=== PATIENT | male | born 1965 | race African-American/Black ===

== ENCOUNTER 2017-11-27 12:41 | Inpatient (IN) | payer OTHER ==
[2017-11-27 14:27] VITALS: BMI 29.8
--- NOTE | 2017-11-27 14:38 | HP ---
COWS - Scale Resting Pulse: 0= [place] 80 or Below Sweatin=Flushed/Facial Moisture Restless Observation: 3= Extraneous Movement Pupil Size: 2= Moderately Dilated Bone or Joint Aches: 2= Severe Diffuse Aches Runny Nose/ Eye Tearin= Runny Nose/Eyes GI Upset > 30mins: 3= Vomiting/Diarrhea Tremor Observation: 2= Slight Tremor Visible Yawning Observation: 2= >3x During Session Anxiety or Irritability: 2=Irritable/Anxious Goose Flesh Skin: 0=Smooth Skin COWS Score: 20 CIWA Score - CIWA Score Nausea/Vomitin Muscle Tremors: 3 Anxiety: 3 Agitation: 3 Paroxysmal Sweats: 1-Minimal Palms Moist Orientation: 0-Oriented Tacttile Disturbances: 2-Mild Itch/Numbness/Burn Auditory Disturbances: 2-Mild Harshness/Frighten Visual Disturbances: 1-Very Mild Sensitivity Headache: 2-Mild CIWA-Ar Total Score: 20 Admission ROS BHS - HPI Chief Complaint: I NEED HELP TO STOP USING HEROIN AND ALCOHOL ALSO COCAINE AND MARIJUANA,SEEKING DETOX,WITHDRAWAL SYMPTOM, LAST DETOX [facility] 06/06/16 TO 06/09/16 SYNCOPE ALCOHOL AND DRUG RELATED CONGENITAL BOW LEG USING WALKER ANXIETY,DEPRESSION,INSOMNIA LONGEST PERIOD OF SOBRIETY 6 YEARS Allergies/Adverse Reactions: Allergies Allergy/AdvReac Type Severity Reaction Status Date / Time No Known Allergies Allergy Verified 11/27/17 18:19 History of Present Illness: THIS 52 YEARS OLD MALE WITH HEROIN,ALCOHOL,COAINE AND MARIJUANA DEPENDENCE, SEEKING DETOX MENTIONED - Ebola screening Have you traveled outside of the country in the last 21 days: No (N) Have you had contact with anyone from an Ebola affected area: No Have you been sick,other than usual withdrawal symptoms: No Do you have a fever: No - Review of Systems Constitutional: Chills, Loss of Appetite, Malaise, Night Sweats, Changes in sleep, Weakness EENT: reports: Tearing, Nose Congestion Respiratory: reports: No Symptoms reported Cardiac: reports: No Symptoms Reported GI: reports: Diarrhea, Nausea, Vomiting, Abdominal cramping : reports: No Symptoms Reported Musculoskeletal: reports: Back Pain, Joint Pain, Muscle Pain, Joint Stiffness, Other (CONGENITAL BOW LEGS) Integumentary: reports: Dryness Neuro: reports: Headache, Tremors Endocrine: reports: No Symptoms Reported Hematology: reports: No Symptoms Reported Psychiatric: reports: No Sypmtoms Reported, Judgement Intact, Mood/Affect Appropiate, Orientated x3 (INSOMNIA), Anxious, Depressed, other Patient History - Patient Medical History Hx Anemia: No Hx Asthma: No Hx Chronic Obstructive Pulmonary Disease (COPD): No Hx Cancer: No Hx Cardiac Disorders: No Hx Congestive Heart Failure: No Hx Hypertension: No Hx Hypercholesterolemia: No Hx Pacemaker: No HX Cerebrovascular Accident: No Hx Seizures: No Hx Dementia: No Hx Diabetes: No Hx Gastrointestinal Disorders: No Hx Liver Disease: No Hx Genitourinary Disorders: No Hx Sexually Transmitted Disorders: No Hx Renal Disease (ESRD): No Hx Thyroid Disease: No Hx Human Immunodeficiency Virus (HIV): No (LAST 2015 NEGATIVE) Hx Hepatitis C: No Hx Depression: Yes (ANXIETY,INSOMNIA) Hx Suicide Attempt: No Hx Bipolar Disorder: No Hx Schizophrenia: No Other Medical History: NO SUICIDAL,NOHOMICIDAL,CONGENITL BOW LEG AMBULATE WITH WALKER - Patient Surgical History Past Surgical History: No Hx Neurologic Surgery: No Hx Cataract Extraction: No Hx Cardiac Surgery: No Hx Lung Surgery: No Hx Breast Surgery: No Hx Breast Biopsy: No Hx Abdominal Surgery: Yes (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 History Hx Alcohol Use: Yes Hx Substance Use: Yes Substance Use Type: Alcohol, Cocaine, Heroin, Marijuana Hx Substance Use Treatment: Yes (DOMENICA MADRID 08/31) - Substances Abused Heroin Route: Injection Frequency: Daily Amount used: 20 BAGS Age of first use: 13 Date of Last Use: 11/27/17 Alcohol Route: Oral Frequency: Daily Amount used: 1/5TH OF VODKA/2 OF 6 PACKS OF 12 OZS OF BEER Age of first use: 21 Date of Last Use: 11/26/17 Cocaine Route: Smoking Frequency: 3-6 times per week Amount used: 20$ Age of first use: 21 Date of Last Use: 11/26/17 Marijuana/Hashish Route: Smoking Frequency: 1-3 times last 30 days Amount used: 10$ Age of first use: 9 Date of Last Use: 11/22/17 Family Disease History - Family Disease History Family Disease History: CA: Mother ( CA OF LUNG), Other: Mother Admission Physical Exam [facility] - Vital Signs Vital Signs: Vital Signs - 24 hr 11/27/17 14:22 Temperature 98.1 F Pulse Rate 66 Respiratory 20 Rate Blood Pressure 135/76 - Physical General Appearance: Yes: Moderate Distress, Tremorous, Irritable, Sweating, Anxious HEENTM: Yes: Normal ENT Inspection, Normocephalic, MARY, Pharynx Normal Respiratory: Yes: Lungs Clear, Normal Breath Sounds, No Respiratory Distress Neck: Yes: Within Normal Limits, Supple, Trachea in good position Breast: Yes: Within Normal Limits Cardiology: Yes: Within Normal Limits, Regular Rhythm, Regular Rate, S1, S2 Abdominal: Yes: Within Normal Limits, Normal Bowel Sounds, Soft Genitourinary: Yes: Within Normal Limits Back: Yes: Muscle Spasm Musculoskeletal: Yes: Back pain, Joint Stiffness, Muscle Pain Extremities: Yes: Tremors, Other (CONGENITAL BOW LEGS WITH DEFORMITIY BOTH KNEES AMBULATE WITH WALKER) Neurological: Yes: anesthesia director II-XII NML intact, Fully Oriented, Alert, Motor Strength 5/5, Normal Mood/Affect Integumentary: Yes: Dry Lymphatic: Yes: Within Normal Limits - Diagnostic (1) Opioid dependence with withdrawal Current Visit: No Status: Acute (2) Alcohol dependence with uncomplicated withdrawal Current Visit: No Status: Acute (3) Cannabis dependence, uncomplicated Current Visit: No Status: Acute (4) Cocaine dependence, uncomplicated Current Visit: No Status: Acute (5) Nicotine dependence Current Visit: No Status: Acute Qualifiers: Nicotine product type: cigarettes Substance use status: uncomplicated Qualified Code(s): F17.210 - Nicotine dependence, cigarettes, uncomplicated (6) PPD positive, treated Current Visit: No Status: Acute (7) Congenital bow leg Current Visit: Yes Status: Acute (8) Walker as ambulation aid Current Visit: Yes Status: Acute Cleared for Admission [facility] - Detox or Rehab [facility] Level of Care: Medically Managed Detox Regimen/Protocol: Methadone/Librium BHS Breath Alcohol Content Breath Alcohol Content: 0 Urine Drug Screen - Results Drug Screen Negative: No Urine Drug Screen Results: THC-Marijuana, VASHTI-Cocaine, OPI-Opiates, AMP- Amphetamines, MET-Methamphetamine
[2017-11-27] MEDS ORDERED: hydrOXYzine PAMOATE 50 MG CAPSULE (FP) PO PRN (15:00)
[2017-11-27] MEDS ORDERED: MENTHOL/PHENOL 1 EACH UD MM PRN (15:00)
[2017-11-27] MEDS ORDERED: MAGNESIUM HYDROX 2400MG/30ML ORAL SUSPENSION 30 ML CUP PO PRN (15:00)
[2017-11-27] MEDS ORDERED: guaiFENesin/D-METHORPHAN HB 10 ML UNIT-DOSE CUPS PO PRN (15:00)
[2017-11-27] MEDS ORDERED: ACETAMINOPHEN 325 MG TABLET (FP) PO PRN (15:00)
[2017-11-27] MEDS ORDERED: LOPERAMIDE HCL 2 MG CAPSULE PO PRN (15:00)
[2017-11-27] MEDS ORDERED: IBUPROFEN 400 MG TABLET (FP) PO PRN (15:00)
[2017-11-27] MEDS ORDERED: MAG HYDROX/AL HYDROX/SIMETH 30 ML UNIT-DOSE CUP PO PRN (15:00)
[2017-11-27] MEDS ORDERED: MAGNESIUM CITRATE 300 ML BOTTLE PO PRN (15:00)
[2017-11-27] MEDS ORDERED: P-EPHED 60MG/TRIPROLIDI 2.5MG TABLET PO PRN (15:00)
[2017-11-27] MEDS ORDERED: chlordiazePOXIDE HCL 25 MG CAPSULE PO PRN (15:00)
[2017-11-27] MEDS ORDERED: CYCLOBENZAPRINE HCL 10 MG TABLET (FP) PO PRN (15:06)
[2017-11-27] MEDS ORDERED: METHADONE HCL 10 MG TABLET (FOR DETOX USE ONLY) PO ONE ×2 (15:22→23:00)
[2017-11-27] MEDS ORDERED: chlordiazePOXIDE HCL 25 MG CAPSULE PO ONE (15:22)
[2017-11-27] MEDS ORDERED: METHADONE HCL 10 MG TABLET (FOR DETOX USE ONLY) ONE (18:57)
[2017-11-27] MEDS: chlordiazePOXIDE HCL 25 MG CAPSULE PO SCH ×2 (19:25→22:55)
[2017-11-27] MEDS: THIAMINE HCL 100 MG TABLET (FP) PO SCH (22:55)
[2017-11-27] MEDS: cloNIDine HCL 0.1 MG TABLET PO SCH (22:55)
[2017-11-27 23:40] LABS: URINE APPEARANCE CLEAR; URINE BILIRUBIN NEGATIVE (NEGATIVE); URINE BLOOD NEGATIVE (NEGATIVE); URINE COLOR YELLOW; URINE GLUCOSE (UA) NEGATIVE (NEGATIVE); URINE KETONE NEGATIVE (NEGATIVE); URINE LEUK ESTERASE NEGATIVE (NEGATIVE); URINE NITRITE NEGATIVE (NEGATIVE); URINE PROTEIN NEGATIVE (NEGATIVE)
[2017-11-28] MEDS: chlordiazePOXIDE HCL 25 MG CAPSULE PO SCH ×4 (06:01→22:56)
[2017-11-28] MEDS ORDERED: METHADONE HCL 10 MG TABLET (FOR DETOX USE ONLY) PO SCH (10:00)
[2017-11-28 10:02] LABS: HEMOGLOBIN 11.4 GM/dL (11.7-16.9); MCH 22.9 pg (25.7-33.7); MCHC 31.7 g/dl (32.0-35.9); MEAN CELL VOLUME 72.3 fl (80-96); MEAN PLT VOLUME 8.4 fl (7.5-11.1); PLATELET COUNT 287 K/MM3 (134-434); RBC 4.99 M/mm3 (4.00-5.60); RDW 16.5 % (11.9-15.9); WHITE BLOOD COUNT 4.3 K/mm3 (4.0-10.0)
[2017-11-28 10:40] LABS: CHLORIDE 104 mmol/L (98-107); POTASSIUM 4.1 mmol/L (3.5-5.1); SODIUM 138 mmol/L (136-145)
[2017-11-28] MEDS: PRENATAL VITAMINS W/ FOLIC ACID TABLET (FP) PO SCH (10:55)
[2017-11-28] MEDS: cloNIDine HCL 0.1 MG TABLET PO SCH ×2 (10:55→22:56)
--- NOTE | 2017-11-28 11:01 | EKG ---
Test Reason : Blood Pressure : / mmHG Vent. Rate : 063 BPM Atrial Rate : 063 BPM P-R Int : 172 ms QRS Dur : 102 ms QT Int : 420 ms P-R-T Axes : -03 -54 019 degrees QTc Int : 429 ms NORMAL SINUS RHYTHM LEFT ANTERIOR FASCICULAR BLOCK ABNORMAL ECG NO PREVIOUS ECGS AVAILABLE Confirmed by JUNIOR DOYLE MD ([id number]) on 11/28/2017 11:01:02 AM Referred By: Confirmed By:JUNIOR DOYLE MD
[2017-11-28 11:03] LABS: ALBUMIN 3.2 g/dl (3.4-5.0); ALK PHOS 110 U/L (45-117); ANION GAP 7 (8-16); BILIRUBIN,TOTAL 0.4 mg/dL (0.2-1.0); BLOOD UREA NITROGEN 15 mg/dL (7-18); CALCIUM 8.4 mg/dL (8.5-10.1); CO2 27 mmol/L (21-32); CREATININE 1.1 mg/dL (0.7-1.3); GLUCOSE,RANDOM 143 mg/dL (74-106); SGOT/AST 27 U/L (15-37); SGPT/ALT 25 U/L (12-78); TOT PROT 6.8 g/dl (6.4-8.2)
--- NOTE | 2017-11-28 11:46 | PN ---
[facility] CIWA - CIWA Score Nausea/Vomitin-No Nausea/No Vomiting Muscle Tremors: 3 Anxiety: 4-Mod. Anxious/Guarded Agitation: 2 Paroxysmal Sweats: 3 Orientation: 0-Oriented Tacttile Disturbances: 2-Mild Itch/Numbness/Burn Auditory Disturbances: 2-Mild Harshness/Frighten Visual Disturbances: 2-Mild Sensitivity Headache: 0-None Present CIWA-Ar Total Score: 18 S COWS - Scale Resting Pulse: 0= [place] 80 or Below Sweatin= Chills/Flushing Restless Observation: 0= Sits Still Pupil Size: 0= Normal to Room Light Bone or Joint Aches: 2= Severe Diffuse Aches Runny Nose/ Eye Tearin= None GI Upset > 30mins: 0= None Tremor Observation of Outstretched Hands: 2= Slight Tremor Visible Yawning Observation: 2= >3x During Session Anxiety or Irritability: 2=Irritable/Anxious Goose Flesh Skin: 3=Piloerection COWS Score: 12 S Progress Note (SOAP) Subjective: Fatigue, Chills, Anxious, Interrupted Sleep, Tremors, Sweating. Objective: PT. A & O X 3. NO ACUTE DISTRESS. 11/28/17 11:43 Vital Signs Temperature 97.9 F 11/28/17 09:50 Pulse Rate 56 L 11/28/17 09:50 Respiratory Rate 18 11/28/17 09:50 Blood Pressure 116/65 11/28/17 09:50 O2 Sat by Pulse Oximetry (%) Laboratory Tests 11/27/17 11/28/17 11/28/17 20:21 05:50 05:50 WBC 4.3 D RBC 4.99 Hgb 11.4 L Hct 36.0 MCV 72.3 L MCH 22.9 L MCHC 31.7 L RDW 16.5 H Plt Count 287 MPV 8.4 Sodium 138 Potassium 4.1 Chloride 104 Carbon Dioxide 27 Anion Gap 7 L BUN 15 D Creatinine 1.1 Creat Clearance w eGFR > 60 Random Glucose 143 H D Calcium 8.4 L Total Bilirubin 0.4 AST 27 ALT 25 Alkaline Phosphatase 110 D Total Protein 6.8 Albumin 3.2 L Urine Color Yellow Urine Appearance Clear Urine pH 5.[address] [place] 1.023 Urine Protein Negative Urine Glucose (UA) Negative Urine Ketones Negative Urine Blood Negative Urine Nitrite Negative Urine Bilirubin Negative Urine Urobilinogen 2.0 Ur Leukocyte Esterase Negative RPR Titer 11/28/17 05:50 WBC RBC Hgb Hct MCV MCH MCHC RDW Plt Count MPV Sodium Potassium Chloride Carbon Dioxide Anion Gap BUN Creatinine Creat Clearance w eGFR Random Glucose Calcium Total Bilirubin AST ALT Alkaline Phosphatase Total Protein Albumin Urine Color Urine Appearance Urine pH Ur Specific [place] Urine Protein Urine Glucose (UA) Urine Ketones Urine Blood Urine Nitrite Urine Bilirubin Urine Urobilinogen Ur Leukocyte Esterase RPR Titer Nonreactive LABS NOTED. Assessment: 11/28/17 11:44 WITHDRAWAL SYMPTOMS. Plan: CONTINUE DETOX. BGM ACBK FOR ELEVATED ADMISSION RANDOM GLUCOSE LEVEL. INCREASE DAILY PO FLUID INTAKE.
--- NOTE | 2017-11-28 13:55 | CONSULT ---
[facility] Psychiatric Consult - Data Date of interview: 11/28/17 Admission source: [facility] Identifying data: Readmission to [facility] for this 52 y/o AA male seeking detox treatment on for alcohol,cocaine,heroin and marihuana dependence.Patient is single,a father of two,domiciled,disabled and reportedly deprived of financial assistance. Substance Abuse History: Confirmed by patient in this session.See details in current [facility] report.Smoking history: Current every day smoker. Have you smoked in the past 12 months: Yes. Aproximately how many cigarettes per day: 20. Cigars Per Day: 0. Hx Chewing Tobacco Use: No. Initiated information on smoking cessation: Yes. 'Breaking Loose' booklet given: 11/27/17. - Substance & Tx. History. Hx Alcohol Use: Yes. Hx Substance Use: Yes. Substance Use Type : Alcohol, Cocaine, Heroin, Marijuana. Hx Substance Use Treatment: Yes (DOMENICA MADRID 08/31). - Substances Abused. Heroin. Route: Injection. Frequency: Daily. Amount used: 20 BAGS. Age of first use: 13. Date of Last Use: . Alcohol. Route: Oral. Frequency: Daily. Amount used: 1/5TH OF VODKA/ 2 OF 6 PACKS OF 12 OZS OF BEER. Age of first use: 21. Date of Last Use: . Cocaine. Route: Smoking. Frequency: 3-6 times per week. Amount used: 20$. Age of first use: 21. Date of Last Use: 11/26/17. Marijuana/Hashish. Route: Smoking. Frequency: 1-3 times last 30 days. Amount used: 10$. Age of first use: 9. Date of Last Use: 11/22/17 Medical History: Arthritis,chronic joint pain,congenital bow leg and a history of plenectomy (age 8). Psychiatric History: Patient denies. Physical/Sexual Abuse/Trauma History: Patient denies. Additional Comment: Urine Drug Screen Results: THC-Marijuana, VASHTI-Cocaine, OPI- Opiates, AMP-Amphetamines, MET-Methamphetamine.Noted. Mental Status Exam - Mental Status Exam Alert and Oriented to: Time, Place, Person Cognitive Function: Grossly Intact Patient Appearance: Disheveled Mood: Angry, Hostile, Irritable Affect: Mood Congruent Patient Behavior: Fatigued, Uncooperative (argues that frequent staff visits prevent from getting enough rest) Speech Pattern: Clear Voice Loudness: Normal Thought Process: Intact, Goal Oriented Thought Disorder: Not Present Hallucinations: Denies Suicidal Ideation: Denies Homicidal Ideation: Denies Insight/Judgement: Poor Sleep: Poorly (wants seroquel), Difficulty falling asleep Appetite: Good Gait/Station: Normal (moves around with walker) Psychiatric Findings - Problem List ([place] 1, 2,3) (1) Opioid dependence with withdrawal Current Visit: Yes Status: Acute (2) Alcohol dependence with uncomplicated withdrawal Current Visit: Yes Status: Acute (3) Cannabis dependence, uncomplicated Current Visit: Yes Status: Acute (4) Cocaine dependence, uncomplicated Current Visit: Yes Status: Acute (5) Nicotine dependence Current Visit: Yes Status: Acute Qualifiers: Nicotine product type: cigarettes Substance use status: uncomplicated Qualified Code(s): F17.210 - Nicotine dependence, cigarettes, uncomplicated (6) Insomnia Current Visit: Yes Status: Acute - Initial Treatment Plan Initial Treatment Plan: Psychoeducation.Sleep hygiene.Detoxification in progress.Seroquel 50 mg po hs (patient's request).Side effects/benefits discussed wt patient.Mr Metz agrees to follow this careplan.Observation.
[2017-11-28] MEDS ORDERED: ONDANSETRON *ODT* 4 MG TABLET SL PRN (19:27)
--- NOTE | 2017-11-28 19:36 | PN ---
S Progress Note (SOAP) Subjective: " I want my methadone increase" Nausea and vomiting Objective: 11/28/17 19:31 Vital Signs Temperature 99.0 F 11/28/17 18:30 Pulse Rate 54 L 11/28/17 18:30 Respiratory Rate 18 11/28/17 18:30 Blood Pressure 127/67 11/28/17 18:30 O2 Sat by Pulse Oximetry (%) Patient was evaluated by the bedside Patient OAX3, no acute distress. Patient had recently vomited No chest pain, dizziness , or abdominal pain reported. Laboratory Last Values WBC 4.3 K/mm3 (4.0-10.0) D 11/28/17 05:50 RBC 4.99 M/mm3 (4.00-5.60) 11/28/17 05:50 Hgb 11.4 GM/dL (11.7-16.9) L 11/28/17 05:50 Hct 36.0 % (35.4-49) 11/28/17 05:50 MCV 72.3 fl (80-96) L 11/28/17 05:50 MCH 22.9 pg (25.7-33.7) L 11/28/17 05:50 MCHC 31.7 g/dl (32.0-35.9) L 11/28/17 05:50 RDW 16.5 % (11.9-15.9) H 11/28/17 05:50 Plt Count 287 K/MM3 (134-434) 11/28/17 05:50 MPV 8.4 fl (7.5-11.1) 11/28/17 05:50 Sodium 138 mmol/L (136-145) 11/28/17 05:50 Potassium 4.1 mmol/L (3.5-5.1) 11/28/17 05:50 Chloride 104 mmol/L (98-107) 11/28/17 05:50 Carbon Dioxide 27 mmol/L (21-32) 11/28/17 05:50 Anion Gap 7 (8-16) L 11/28/17 05:50 BUN 15 mg/dL (7-18) D 11/28/17 05:50 Creatinine 1.1 mg/dL (0.7-1.3) 11/28/17 05:50 Creat Clearance w eGFR > 60 (>60) 11/28/17 05:50 Random Glucose 143 mg/dL (74-106) H D 11/28/17 05:50 Calcium 8.4 mg/dL (8.5-10.1) L 11/28/17 05:50 Total Bilirubin 0.4 mg/dL (0.2-1.0) 11/28/17 05:50 AST 27 U/L (15-37) 11/28/17 05:50 ALT 25 U/L (12-78) 11/28/17 05:50 Alkaline Phosphatase 110 U/L (45-117) D 11/28/17 05:50 Total Protein 6.8 g/dl (6.4-8.2) 11/28/17 05:50 Albumin 3.2 g/dl (3.4-5.0) L 11/28/17 05:50 Urine Color Yellow 11/27/17 20:21 Urine Appearance Clear 11/27/17 20:21 Urine pH 5.0 (5.0-8.0) 11/27/17 20:21 Ur Specific [place] 1.023 (1.001-1.035) 11/27/17 20:21 Urine Protein Negative (NEGATIVE) 11/27/17 20:21 Urine Glucose (UA) Negative (NEGATIVE) 11/27/17 20:21 Urine Ketones Negative (NEGATIVE) 11/27/17 20:21 Urine Blood Negative (NEGATIVE) 11/27/17 20:21 Urine Nitrite Negative (NEGATIVE) 11/27/17 20:21 Urine Bilirubin Negative (NEGATIVE) 11/27/17 20:21 Urine Urobilinogen 2.0 mg/dL (0.2-1.0) 11/27/17 20:21 Ur Leukocyte Esterase Negative (NEGATIVE) 11/27/17 20:21 RPR Titer Nonreactive (NONREACTIVE) 11/28/17 05:50 Assessment: 11/28/17 19:34 withdrawal symptoms Plan: Patient refuse Tigan Zofran 8mg PO PRN order Continue detox Increase fluids Patietn made aware Methadone dosage will not be increase Continue to monitor
[2017-11-28] MEDS ORDERED: TRIMETHOBENZAMIDE HCL 200MG/2ML INJ IM ONE (19:45)
[2017-11-28] MEDS: QUEtiapine FUMARATE 50 MG TABLET PO SCH (22:56)
[2017-11-28] MEDS: THIAMINE HCL 100 MG TABLET (FP) PO SCH (22:56)
[2017-11-29] MEDS: chlordiazePOXIDE HCL 25 MG CAPSULE PO SCH ×2 (06:46→10:42)
[2017-11-29] MEDS: cloNIDine HCL 0.1 MG TABLET PO SCH ×2 (10:41→23:00)
[2017-11-29] MEDS: PRENATAL VITAMINS W/ FOLIC ACID TABLET (FP) PO SCH (10:42)
[2017-11-29] MEDS: METHADONE HCL 5 MG TABLET (FOR DETOX USE ONLY) PO SCH (10:42)
--- NOTE | 2017-11-29 10:49 | PN ---
[facility] CIWA - CIWA Score Nausea/Vomitin Muscle Tremors: 3 Anxiety: 4-Mod. Anxious/Guarded Agitation: 0-Normal Activity Paroxysmal Sweats: 3 Orientation: 0-Oriented Tacttile Disturbances: 2-Mild Itch/Numbness/Burn Auditory Disturbances: 0-None Visual Disturbances: 0-None Headache: 0-None Present CIWA-Ar Total Score: 15 BHS COWS - Scale Resting Pulse: 0= [place] 80 or Below Sweatin= Chills/Flushing Restless Observation: 0= Sits Still Pupil Size: 0= Normal to Room Light Bone or Joint Aches: 2= Severe Diffuse Aches Runny Nose/ Eye Tearin= None GI Upset > 30mins: 2= Nausea/Diarrhea Tremor Observation of Outstretched Hands: 2= Slight Tremor Visible Yawning Observation: 1= 1-2x During Session Anxiety or Irritability: 2=Irritable/Anxious Goose Flesh Skin: 3=Piloerection COWS Score: 13 S Progress Note (SOAP) Subjective: Body Aches, Tremors, Interrupted sleep, Fatigue. Objective: PT. A & O X 3. NO ACUTE DISTRESS. PT. DENIES CHEST PAIN. 11/29/17 10:46 Vital Signs Temperature 98.5 F 11/29/17 09:32 Pulse Rate 52 L 11/29/17 09:32 Respiratory Rate 18 11/29/17 09:32 Blood Pressure 164/72 11/29/17 09:32 O2 Sat by Pulse Oximetry (%) Laboratory Tests 11/27/17 11/28/17 11/28/17 20:21 05:50 05:50 WBC 4.3 D RBC 4.99 Hgb 11.4 L Hct 36.0 MCV 72.3 L MCH 22.9 L MCHC 31.7 L RDW 16.5 H Plt Count 287 MPV 8.4 Sodium 138 Potassium 4.1 Chloride 104 Carbon Dioxide 27 Anion Gap 7 L BUN 15 D Creatinine 1.1 Creat Clearance w eGFR > 60 POC Glucometer Random Glucose 143 H D Calcium 8.4 L Total Bilirubin 0.4 AST 27 ALT 25 Alkaline Phosphatase 110 D Total Protein 6.8 Albumin 3.2 L Urine Color Yellow Urine Appearance Clear Urine pH 5.0 Ur Specific [place] 1.023 Urine Protein Negative Urine Glucose (UA) Negative Urine Ketones Negative Urine Blood Negative Urine Nitrite Negative Urine Bilirubin Negative Urine Urobilinogen 2.0 Ur Leukocyte Esterase Negative RPR Titer 11/28/17 11/29/17 05:50 06:43 WBC RBC Hgb Hct MCV MCH MCHC RDW Plt Count MPV Sodium Potassium Chloride Carbon Dioxide Anion Gap BUN Creatinine Creat Clearance w eGFR POC Glucometer 121 Random Glucose Calcium Total Bilirubin AST ALT Alkaline Phosphatase Total Protein Albumin Urine Color Urine Appearance Urine pH Ur Specific [place] Urine Protein Urine Glucose (UA) Urine Ketones Urine Blood Urine Nitrite Urine Bilirubin Urine Urobilinogen Ur Leukocyte Esterase RPR Titer Nonreactive LABS NOTED. Assessment: 11/29/17 10:47 WITHDRAWAL SYMPTOMS. Plan: CONTINUE DETOX. INCREASE DAILY PO FLUID INTAKE. ENCOURAGE MODEERATE SLOW AMBULATION ON UNIT. WHEELCHAIR ORDERED FOR TIMES WHEN PATIENT FEELS THAT IT IS NECESSARY TO ASSIST WITH MOVEMENT ON UNIT. CONTINUE TO MONITOR BP.
[2017-11-29] MEDS: chlordiazePOXIDE 5 MG CAPSULE PO SCH ×2 (17:06→23:00)
[2017-11-29] MEDS: THIAMINE HCL 100 MG TABLET (FP) PO SCH (23:00)
[2017-11-29] MEDS: QUEtiapine FUMARATE 50 MG TABLET PO SCH (23:00)
[2017-11-30] MEDS: chlordiazePOXIDE 5 MG CAPSULE PO SCH ×2 (06:01→10:48)
[2017-11-30] MEDS: PRENATAL VITAMINS W/ FOLIC ACID TABLET (FP) PO SCH (10:48)
[2017-11-30] MEDS: cloNIDine HCL 0.1 MG TABLET PO SCH ×2 (10:48→22:42)
[2017-11-30] MEDS: METHADONE HCL 5 MG TABLET (FOR DETOX USE ONLY) PO SCH (10:48)
--- NOTE | 2017-11-30 12:26 | PN ---
BHS Progress Note (SOAP) Subjective: Tremors, Vomiting, Fatigue, Sweating. Objective: PT. A & O X 3, OBSERVED MOVING ON UNIT IN A WHEELCHAIR. NO ACUTE DISTRESS. 11/30/17 12:24 Vital Signs Temperature 97.3 F L 11/30/17 09:38 Pulse Rate 53 L 11/30/17 09:38 Respiratory Rate 19 11/30/17 09:38 Blood Pressure 159/83 11/30/17 09:38 O2 Sat by Pulse Oximetry (%) Laboratory Tests 11/27/17 11/28/17 11/28/17 20:21 05:50 05:50 WBC 4.3 D RBC 4.99 Hgb 11.4 L Hct 36.0 MCV 72.3 L MCH 22.9 L MCHC 31.7 L RDW 16.5 H Plt Count 287 MPV 8.4 Sodium 138 Potassium 4.1 Chloride 104 Carbon Dioxide 27 Anion Gap 7 L BUN 15 D Creatinine 1.1 Creat Clearance w eGFR > 60 POC Glucometer Random Glucose 143 H D Calcium 8.4 L Total Bilirubin 0.4 AST 27 ALT 25 Alkaline Phosphatase 110 D Total Protein 6.8 Albumin 3.2 L Urine Color Yellow Urine Appearance Clear Urine pH 5.0 Ur Specific [place] 1.023 Urine Protein Negative Urine Glucose (UA) Negative Urine Ketones Negative Urine Blood Negative Urine Nitrite Negative Urine Bilirubin Negative Urine Urobilinogen 2.0 Ur Leukocyte Esterase Negative RPR Titer 11/28/17 11/29/17 11/30/17 05:50 06:43 05:18 WBC RBC Hgb Hct MCV MCH MCHC RDW Plt Count MPV Sodium Potassium Chloride Carbon Dioxide Anion Gap BUN Creatinine Creat Clearance w eGFR POC Glucometer 121 139 Random Glucose Calcium Total Bilirubin AST ALT Alkaline Phosphatase Total Protein Albumin Urine Color Urine Appearance Urine pH Ur Specific [place] Urine Protein Urine Glucose (UA) Urine Ketones Urine Blood Urine Nitrite Urine Bilirubin Urine Urobilinogen Ur Leukocyte Esterase RPR Titer Nonreactive LABS NOTED. Assessment: 11/30/17 12:25 WITHDRAWAL SYMPTOMS. Plan: CONTINUE DETOX. PRN ZOFRAN SL FOR NAUSEA/ VOMITING.
[2017-11-30] MEDS: chlordiazePOXIDE HCL 10 MG CAPSULE PO SCH ×2 (17:42→22:42)
[2017-11-30] MEDS: THIAMINE HCL 100 MG TABLET (FP) PO SCH (22:42)
[2017-11-30] MEDS: QUEtiapine FUMARATE 50 MG TABLET PO SCH (22:42)
[2017-12-01] MEDS: chlordiazePOXIDE HCL 10 MG CAPSULE PO SCH ×2 (06:27→11:13)
[2017-12-01] MEDS ORDERED: METHADONE HCL 10 MG TABLET (FOR DETOX USE ONLY) PO SCH (10:00)
[2017-12-01] MEDS: cloNIDine HCL 0.1 MG TABLET PO SCH ×2 (10:57→23:13)
[2017-12-01] MEDS: PRENATAL VITAMINS W/ FOLIC ACID TABLET (FP) PO SCH (10:57)
[2017-12-01] MEDS ORDERED: ALBUTEROL SO4 2.5/IPRATROPIUM 0.5 INH SOL 3 ML VIAL.NEB. NEB PRN (12:13)
--- NOTE | 2017-12-01 17:47 | PN ---
BHS Progress Note (SOAP) Subjective: Stomach Cramping, Fatigue, H/A. Patient reports discomfort in lower chest and epigastric area and intermittent SOB X approx. 2 days. Patient denies history of Respiratory disease. Patient also reporting poor appetite. Objective: PT. A & O X 3, OBSERVED MOVING ABOUT UNIT WITH WALKER. S1, S2. LUNG SOUNDS AUSCULTATED CLEAR AND EQUAL BILATERALLY. 12/01/17 17:42 Vital Signs Temperature 98.0 F 12/01/17 17:40 Pulse Rate 48 L 12/01/17 17:40 Respiratory Rate 20 12/01/17 17:40 Blood Pressure 117/74 12/01/17 17:40 O2 Sat by Pulse Oximetry (%) Laboratory Tests 11/27/17 11/28/17 11/28/17 20:21 05:50 05:50 WBC 4.3 D RBC 4.99 Hgb 11.4 L Hct 36.0 MCV 72.3 L MCH 22.9 L MCHC 31.7 L RDW 16.5 H Plt Count 287 MPV 8.4 Sodium 138 Potassium 4.1 Chloride 104 Carbon Dioxide 27 Anion Gap 7 L BUN 15 D Creatinine 1.1 Creat Clearance w eGFR > 60 POC Glucometer Random Glucose 143 H D Calcium 8.4 L Total Bilirubin 0.4 AST 27 ALT 25 Alkaline Phosphatase 110 D Total Protein 6.8 Albumin 3.2 L Urine Color Yellow Urine Appearance Clear Urine pH 5.0 Ur Specific [place] 1.023 Urine Protein Negative Urine Glucose (UA) Negative Urine Ketones Negative Urine Blood Negative Urine Nitrite Negative Urine Bilirubin Negative Urine Urobilinogen 2.0 Ur Leukocyte Esterase Negative RPR Titer 11/28/17 11/29/17 11/30/17 05:50 06:43 05:18 WBC RBC Hgb Hct MCV MCH MCHC RDW Plt Count MPV Sodium Potassium Chloride Carbon Dioxide Anion Gap BUN Creatinine Creat Clearance w eGFR POC Glucometer 121 139 Random Glucose Calcium Total Bilirubin AST ALT Alkaline Phosphatase Total Protein Albumin Urine Color Urine Appearance Urine pH Ur Specific [place] Urine Protein Urine Glucose (UA) Urine Ketones Urine Blood Urine Nitrite Urine Bilirubin Urine Urobilinogen Ur Leukocyte Esterase RPR Titer Nonreactive 12/01/17 06:10 WBC RBC Hgb Hct MCV MCH MCHC RDW Plt Count MPV Sodium Potassium Chloride Carbon Dioxide Anion Gap BUN Creatinine Creat Clearance w eGFR POC Glucometer 108 Random Glucose Calcium Total Bilirubin AST ALT Alkaline Phosphatase Total Protein Albumin Urine Color Urine Appearance Urine pH Ur Specific [place] Urine Protein Urine Glucose (UA) Urine Ketones Urine Blood Urine Nitrite Urine Bilirubin Urine Urobilinogen Ur Leukocyte Esterase RPR Titer LABS NOTED. O2 Sat: 94 %. 12/01/17 17:48 Assessment: 12/01/17 17:43 WITHDRAWAL SYMPTOMS. Plan: CONTINUE DETOX. STAT ECG ORDERED, RESULTS NOTED. SOFT DIET WITH GLUCERNA SUPPLEMENTATION TID ORDERED TO INCREASE CALORIE CONSUMPTION.. O2, 3L PRN, DUONEB PRN FOR SOB.
[2017-12-01] MEDS: QUEtiapine FUMARATE 50 MG TABLET PO SCH (23:14)
[2017-12-01] MEDS: THIAMINE HCL 100 MG TABLET (FP) PO SCH (23:14)
[2017-12-02] MEDS ORDERED: METHADONE HCL 5 MG TABLET (FOR DETOX USE ONLY) PO SCH (06:00)
[2017-12-02 06:22] VITALS: BP 103/66; PULSE 56; TEMP 97.9
[2017-12-02] MEDS: cloNIDine HCL 0.1 MG TABLET PO SCH (10:52)
[2017-12-02] MEDS: PRENATAL VITAMINS W/ FOLIC ACID TABLET (FP) PO SCH (10:52)
--- NOTE | 2017-12-03 23:30 | EKG ---
Test Reason : Blood Pressure : / mmHG Vent. Rate : 057 BPM Atrial Rate : 057 BPM P-R Int : 158 ms QRS Dur : 096 ms QT Int : 410 ms P-R-T Axes : 079 -65 048 degrees QTc Int : 399 ms SINUS BRADYCARDIA LEFT ANTERIOR FASCICULAR BLOCK ABNORMAL ECG WHEN COMPARED WITH ECG OF 27-NOV-2017 19:02, NO SIGNIFICANT CHANGE WAS FOUND Confirmed by LADONNA VIVAS MD ([id number]) on 12/03/2017 11:30:31 PM Referred By: Confirmed By:LADONNA VIVAS MD
== END 2017-12-02 09:20 | disposition home or self-care (01) | DRG 773 ==
LOC: YASAS 12:41 → Y3N 14:56
PROVIDERS: ADMIT Internal Medicine; ATTEND Internal Medicine
PROC: HZ2ZZZZ Detoxification Services for Substance Abuse Treatment (ICD-10-PCS; principal; 2017-11-27)
DX: F11.23 Opioid dependence with withdrawal (principal); F10.230 Alcohol dependence with withdrawal, uncomplicated; F14.20 Cocaine dependence, uncomplicated; F12.20 Cannabis dependence, uncomplicated; F17.210 Nicotine dependence, cigarettes, uncomplicated; F51.05 Insomnia due to other mental disorder; Q68.5 Congenital bowing of long bones of leg, unspecified; R26.2 Difficulty in walking, not elsewhere classified; Z99.89 Dependence on other enabling machines and devices; Z90.81 Acquired absence of spleen
CPT/HCPCS: 36415; 80053; 81003; 82962; 85027; 86593; 93005; 93010; J0735

== ENCOUNTER 2019-08-19 10:17 | Inpatient (IN) | payer OTHER ==
[2019-08-19 11:37] VITALS: BMI 27.6
--- NOTE | 2019-08-19 12:20 | HP ---
COWS - Scale Resting Pulse: 0= [place] 80 or Below Sweatin= Chills/Flushing Restless Observation: 1= Difficult to Sit Still Pupil Size: 0= Normal to Room Light Bone or Joint Aches: 2= Severe Diffuse Aches Runny Nose/ Eye Tearin= Runny Nose/Eyes GI Upset > 30mins: 0= None Tremor Observation: 2= Slight Tremor Visible Yawning Observation: 4= Several Times/Minute Anxiety or Irritability: 2=Irritable/Anxious Goose Flesh Skin: 0=Smooth Skin COWS Score: 14 CIWA Score Nausea/Vomitin-No Nausea/No Vomiting Muscle Tremors: 3 Anxiety: 1-Mildly Anxious Agitation: 3 Paroxysmal Sweats: 2 Orientation: 1-Uncertain about Date Tacttile Disturbances: 0-None Auditory Disturbances: 0-None Visual Disturbances: 0-None Headache: 2-Mild CIWA-Ar Total Score: 12 - Admission Criteria OASAS Guidelines: Admission for Medically Managed Detox: Requires at least one of the followin. CIWA greater than 12 2. Seizures within the past 24 hours 3. Delirium tremens within the past 24 hours 4. Hallucinations within the past 24 hours 5. Acute intervention needed for co occurring medical disorder 6. Acute intervention needed for co occurring psychiatric disorder 7. Severe withdrawal that cannot be handled at a lower level of care (continued vomiting, continued diarrhea, abnormal vital signs) requiring intravenous medication and/or fluids 8. Admitting History and Physical - Past Medical History Rheumatology: Yes: Other (arthritis unspecified) - Past Surgical History Past Surgical History: Yes: Splenectomy - Smoking History Smoking history: Current every day smoker Have you smoked in the past 12 months: Yes Aproximately how many cigarettes per day: 20 - Alcohol/Substance Use Hx Alcohol Use: Yes History of Substance Use: reports: Cocaine, Heroin, Marijuana, Prescription - Social History Usual Living Arrangement: Yes: Alone Admission [facility] Allergies/Adverse Reactions: Allergies Allergy/AdvReac Type Severity Reaction Status Date / Time No Known Allergies Allergy Verified 08/19/19 10:47 History of Present Illness: 54 y.o. M PMH arthritis presenting for detox from heroin & alcohol. Has completed detox program in the past, never did rehab. Heroin: Daily use, 20 bags per day. Uses IV. Last used last night. Started at age 13. EtOH: Daily use, only drinks beer. Drinks 6-7 6 packs 12 oz. cans. Last drink 10 hrs ago. Started in 1998. Cocaine: daily use. $20 per day. Last used 10 hrs ago. Methadone: 10mg, last taken 2 days ago. gets from streets, not in a program. Marijuana: daily use cannot quantify amount Cigarettes: smokes 1 pack per day "for a lot of years" PSH: splenectomy Social hx: Lives in an apartment but lives mostly in the streets. Not currently working. All: NKDA/ NKFA Meds: Motrin/ "whatever i can get" - Ebola screening Have you traveled outside of the country in the last 21 days: No Have you had contact with anyone from an Ebola affected area: No Do you have a fever: No - Review of Systems Constitutional: Chills EENT: reports: Tearing, Other (rhinorrhea) Respiratory: reports: No Symptoms reported Cardiac: reports: No Symptoms Reported GI: reports: Nausea Musculoskeletal: reports: Joint Pain Integumentary: reports: Other (track almanza UE) Neuro: reports: Headache, Tremors, Unsteady Gait Endocrine: reports: No Symptoms Reported Hematology: reports: No Symptoms Reported Psychiatric: reports: Mood/Affect Appropiate, Disorientated (AOx1 not oriented to time or place) Patient History - Patient Medical History Hx Anemia: No Hx Asthma: No Hx Chronic Obstructive Pulmonary Disease (COPD): No Hx Cancer: No Hx Cardiac Disorders: No Hx Congestive Heart Failure: No Hx Hypertension: No Hx Hypercholesterolemia: No Hx Pacemaker: No HX Cerebrovascular Accident: No Hx Seizures: No Hx Dementia: No Hx Diabetes: No Hx Gastrointestinal Disorders: No Hx Liver Disease: No Hx Genitourinary Disorders: No Hx Sexually Transmitted Disorders: No Hx Renal Disease (ESRD): No Hx Thyroid Disease: No Hx Human Immunodeficiency Virus (HIV): No (LAST 2015 NEGATIVE) Hx Hepatitis C: No Hx Depression: No Hx Suicide Attempt: No Hx Bipolar Disorder: No Hx Schizophrenia: No - Patient Surgical History Past Surgical History: No Hx Neurologic Surgery: No Hx Cataract Extraction: No Hx Cardiac Surgery: No Hx Lung Surgery: No Hx Breast Surgery: No Hx Breast Biopsy: No Hx Abdominal Surgery: Yes (SPLENECTOMY AT AGE OF 88 YEARS OLD POST TRAUMA) Hx Appendectomy: No Hx Cholecystectomy: No Hx Genitourinary Surgery: No Hx Section: No Hx Orthopedic Surgery: No Anesthesia Reaction: No - Smoking Cessation Smoking history: Current every day smoker Have you smoked in the past 12 months: Yes Aproximately how many cigarettes per day: 20 Cigars Per Day: 0 Hx Chewing Tobacco Use: No Initiated information on smoking cessation: Yes 'Breaking Loose' booklet given: 08/19/19 - Substance & Tx. History Hx Alcohol Use: Yes Substance Use Type: Alcohol, Cocaine, Heroin, Marijuana, Opiates, Prescribed - Substances abused Heroin Substance route: Injection Frequency: Daily Amount used: 20BAGS Age of first use: 13 Date of last use: 08/19/19 Alcohol Substance route: Oral Frequency: Daily Amount used: 6-7 six packs of beer Age of first use: 13 Date of last use: 08/19/19 Admission Physical Exam [facility] - Vital Signs Vital Signs: Vital Signs - 24 hr 08/19/19 10:48 Temperature 98.2 F Pulse Rate 74 Respiratory 20 Rate Blood Pressure 139/77 - Physical General Appearance: Yes: Tremorous, Anxious HEENTM: Yes: Normocephalic, [place], Rhinorrhea, Other (eye tearing b/l) Respiratory: Yes: Lungs Clear, Normal Breath Sounds Neck: Yes: Within Normal Limits Cardiology: Yes: Regular Rhythm, Regular Rate, S1, S2 Abdominal: Yes: Normal Bowel Sounds, Non Tender, Soft Back: Yes: Normal Inspection Musculoskeletal: Yes: Joint Stiffness, Joint swelling, Muscle weakness (Lower extremity weakness, decreased ROM.) Extremities: Yes: Tremors, Other (Genu varus deformity of RLE. Decreased ROM b/ l LE's.) Neurological: Yes: occupational therapy program director II-XII NML intact, Alert, Normal Mood/Affect, Disoriented (oriented only to self not time or place) Integumentary: Yes: Dry, Track Almanza (Upper extremities) Lymphatic: Yes: Within Normal Limits - Diagnostic (1) Alcohol dependence with uncomplicated withdrawal Current Visit: No Status: Chronic (2) Cannabis dependence, uncomplicated Current Visit: No Status: Chronic (3) Cocaine dependence, uncomplicated Current Visit: No Status: Acute (4) Nicotine dependence Current Visit: No Status: Chronic Qualifiers: Nicotine product type: cigarettes Substance use status: uncomplicated Qualified Code(s): F17.210 - Nicotine dependence, cigarettes, uncomplicated (5) Opioid dependence with withdrawal Current Visit: No Status: Chronic Cleared for Admission [facility] - Detox or Rehab [facility] Level of Care: Medically Supervised Breathalyzer - Breathalyzer Breathalyzer: 0 Urine Drug Screen - Test Device Lot number: [id number] Expiration date: 04/13/21 - Control Is test valid?: Yes - Results Urine drug screen results: THC-Marijuana, VASHTI-Cocaine, FEN-Fentanyl, MOP-Opiates , MTD-Methadone, BZO-Benzodiazepines Inpatient Rehab Admission - Rehab Decision to Admit Inpatient rehab admission?: No
[2019-08-19] MEDS ORDERED: chlordiazePOXIDE HCL 10 MG CAPSULE PO PRN (13:46)
[2019-08-19] MEDS ORDERED: hydrOXYzine PAMOATE 25 MG CAPSULE (FP) PO PRN (13:46)
[2019-08-19] MEDS ORDERED: IBUPROFEN 400 MG TABLET (FP) PO PRN (13:46)
[2019-08-19] MEDS ORDERED: MAGNESIUM CITRATE 300 ML BOTTLE PO PRN (13:46)
[2019-08-19] MEDS ORDERED: ACETAMINOPHEN 325 MG TABLET (FP) PO PRN ×2 (13:46)
[2019-08-19] MEDS ORDERED: MELATONIN 5 MG TABLETS PO PRN (13:46)
[2019-08-19] MEDS ORDERED: MENTHOL/PHENOL 1 EACH UD MM PRN (13:46)
[2019-08-19] MEDS ORDERED: BISMUTH SUBSALICYLATE 524 MG/30 ML UD PO PRN (13:46)
[2019-08-19] MEDS ORDERED: MAGNESIUM HYDROX 2400MG/30ML ORAL SUSPENSION 30 ML CUP PO PRN (13:46)
[2019-08-19] MEDS ORDERED: MAG HYDROX/AL HYDROX/SIMETH 30 ML UNIT-DOSE CUP PO PRN (13:46)
[2019-08-19] MEDS ORDERED: NICOTINE POLACRILEX 2 MG GUM BUC PRN (13:46)
[2019-08-19] MEDS ORDERED: METHADONE HCL 10 MG TABLET (FOR DETOX USE ONLY) PO ONE (14:15)
--- NOTE | 2019-08-19 14:25 | PN ---
Teaching Attending Note Name of Resident: Mary Evangelista ATTENDING PHYSICIAN STATEMENT I saw the patient. I reviewed the resident's note and discussed the case with the resident. I agree with the resident's findings and plan as documented. SUBJECTIVE: pt drowsy, poor historian , declined to answer questions from this ad writer " I have answered all of that already " OBJECTIVE: wnwd , ambulating w/ walker pt refused exam by this ad writer Vital Signs - 24 hr 08/19/19 10:48 Temperature 98.2 F Pulse Rate 74 Respiratory 20 Rate Blood Pressure 139/77 ASSESSMENT AND PLAN: Opioid dependence / ETOH dependence / Cocaine dependence / Cannabis dependence / Nicotine dependence .
[2019-08-19] MEDS: chlordiazePOXIDE HCL 25 MG CAPSULE PO SCH ×2 (14:59→22:37)
[2019-08-19] MEDS: NICOTINE 14 MG/24 HOURS TOPICAL PATCH TD SCH (15:02)
[2019-08-19] MEDS: THIAMINE HCL 100 MG TABLET (FP) PO SCH (22:37)
[2019-08-20] MEDS: chlordiazePOXIDE HCL 25 MG CAPSULE PO SCH ×3 (06:10→23:36)
[2019-08-20] MEDS ORDERED: METHADONE (DETOX) 20 MG, METHADONE (DETOX) 5 MG PO ONE (10:00)
[2019-08-20] MEDS ORDERED: METHADONE HCL 5 MG TABLET (FOR DETOX USE ONLY) ONE (10:12)
[2019-08-20] MEDS ORDERED: METHADONE HCL 10 MG TABLET (FOR DETOX USE ONLY) ONE (10:13)
[2019-08-20 10:47] LABS: BILIRUBIN,TOTAL 0.4 mg/dL (0.2-1); CALCIUM 8.4 mg/dL (8.5-10.1); CREATININE 0.9 mg/dL (0.55-1.3); POTASSIUM 4.3 mmol/L (3.5-5.1); TOT PROT 6.5 g/dl (6.4-8.2)
[2019-08-20 10:58] LABS: HEMOGLOBIN 11.4 GM/dL (11.7-16.9); MCH 23.8 pg (25.7-33.7); MCHC 32.6 g/dl (32.0-35.9); MEAN CELL VOLUME 72.8 fl (80-96); MEAN PLT VOLUME 8.1 fl (7.5-11.1); PLATELET COUNT 295 K/MM3 (134-434); RDW 16.4 % (11.9-15.9)
[2019-08-20] MEDS: PRENATAL VITAMINS W/ FOLIC ACID TABLET (FP) PO SCH (11:13)
[2019-08-20] MEDS: NICOTINE 14 MG/24 HOURS TOPICAL PATCH TD SCH (11:15)
--- NOTE | 2019-08-20 11:25 | PN ---
[facility] CIWA - CIWA Score Nausea/Vomitin-Mild Nausea/No Vomiting Muscle Tremors: 1-None Visible, but [place] Anxiety: 2 Agitation: 2 Paroxysmal Sweats: No Perspiration Orientation: 0-Oriented Tacttile Disturbances: 1-Very Mild Itch/Numbness Auditory Disturbances: 0-None Visual Disturbances: 0-None Headache: 1-Very Mild CIWA-Ar Total Score: 8 [facility]HS COWS - Scale Resting Pulse: 0= [place] 80 or Below Sweatin= No chills or Flushing Restless Observation: 1= Difficult to Sit Still Pupil Size: 1= Pupils >than Normal Bone or Joint Aches: 1= Mild Discomfort Runny Nose/ Eye Tearin= Nasal Congestion GI Upset > 30mins: 1= Stomach Cramp Tremor Observation of Outstretched Hands: 1= Tremor [place], Not Seen Yawning Observation: 1= 1-2x During Session Anxiety or Irritability: 2=Irritable/Anxious Goose Flesh Skin: 0=Smooth Skin COWS Score: 9 [facility] Progress Note (SOAP) Subjective: alert,irritable,anxious,interrupted sleep,tremor,pain in the body Objective: 08/20/19 11:24 Vital Signs Temperature 97.9 F 08/20/19 09:18 Pulse Rate 62 08/20/19 09:18 Respiratory Rate 20 08/20/19 09:18 Blood Pressure 150/71 08/20/19 09:18 O2 Sat by Pulse Oximetry (%) Laboratory Last Values WBC 4.0 K/mm3 (4.0-10.0) 08/20/19 08:15 RBC 4.80 M/mm3 (4.00-5.60) 08/20/19 08:15 Hgb 11.4 GM/dL (11.7-16.9) L 08/20/19 08:15 Hct 35.0 % (35.4-49) L 08/20/19 08:15 MCV 72.8 fl (80-96) L 08/20/19 08:15 MCH 23.8 pg (25.7-33.7) L 08/20/19 08:15 MCHC 32.6 g/dl (32.0-35.9) 08/20/19 08:15 RDW 16.4 % (11.9-15.9) H 08/20/19 08:15 Plt Count 295 K/MM3 (134-434) 08/20/19 08:15 MPV 8.1 fl (7.5-11.1) 08/20/19 08:15 Sodium 139 mmol/L (136-145) 08/20/19 08:15 Potassium 4.3 mmol/L (3.5-5.1) 08/20/19 08:15 Chloride 106 mmol/L (98-107) 08/20/19 08:15 Carbon Dioxide 28 mmol/L (21-32) 08/20/19 08:15 Anion Gap 4 MMOL/L (8-16) L 08/20/19 08:15 BUN 16.0 mg/dL (7-18) 08/20/19 08:15 Creatinine 0.9 mg/dL (0.55-1.3) 08/20/19 08:15 Est GFR (CKD-EPI)AfAm 111.83 08/20/19 08:15 Est GFR (CKD-EPI)NonAf 96.49 08/20/19 08:15 Random Glucose 85 mg/dL (74-106) 08/20/19 08:15 Calcium 8.4 mg/dL (8.5-10.1) L 08/20/19 08:15 Total Bilirubin 0.4 mg/dL (0.2-1) 08/20/19 08:15 AST 26 U/L (15-37) 08/20/19 08:15 ALT 23 U/L (13-61) 08/20/19 08:15 Alkaline Phosphatase 86 U/L (45-117) 08/20/19 08:15 Total Protein 6.5 g/dl (6.4-8.2) 08/20/19 08:15 Albumin 3.0 g/dl (3.4-5.0) L 08/20/19 08:15 08/20/19 11:24 rpr pending Assessment: 08/20/19 11:25 withdrawal symptom Plan: continue detox methadone and librium regimen
--- NOTE | 2019-08-20 18:03 | CONSULT ---
[facility] Psychiatric Consult - Data Date of interview: 08/20/19 Admission source: [facility] Identifying data: Chief Estimator approached patient for psychiatric consultation. Patient stated to customs entry writer, " I do want to talk now. I don't feel good. Maybe we can talk tomorrow. " Psychiatric consultation refused.
[2019-08-20] MEDS: THIAMINE HCL 100 MG TABLET (FP) PO SCH (23:37)
[2019-08-21] MEDS ORDERED: chlordiazePOXIDE 5 MG CAPSULE PO SCH (05:00)
[2019-08-21] MEDS ORDERED: METHADONE HCL 10 MG TABLET (FOR DETOX USE ONLY) PO ONE (10:00)
--- NOTE | 2019-08-21 10:05 | PN ---
S CIWA - CIWA Score Nausea/Vomitin-Mild Nausea/No Vomiting Muscle Tremors: 2 Anxiety: 2 Agitation: 2 Paroxysmal Sweats: No Perspiration Orientation: 0-Oriented Tacttile Disturbances: 0-None Auditory Disturbances: 0-None Visual Disturbances: 0-None Headache: 1-Very Mild CIWA-Ar Total Score: 8 BHS COWS - Scale Resting Pulse: 0= [place] 80 or Below Sweatin= No chills or Flushing Restless Observation: 1= Difficult to Sit Still Pupil Size: 1= Pupils >than Normal Bone or Joint Aches: 1= Mild Discomfort Runny Nose/ Eye Tearin= Nasal Congestion GI Upset > 30mins: 1= Stomach Cramp Tremor Observation of Outstretched Hands: 1= Tremor [place], Not Seen Yawning Observation: 1= 1-2x During Session Anxiety or Irritability: 2=Irritable/Anxious Goose Flesh Skin: 0=Smooth Skin COWS Score: 9 S Progress Note (SOAP) Subjective: alert,irritable,anxious,interrupted sleep,pain in the body Objective: 08/21/19 10:04 Vital Signs Temperature 98.1 F 08/21/19 06:10 Pulse Rate 54 L 08/21/19 06:10 Respiratory Rate 18 08/21/19 06:10 Blood Pressure 162/78 08/21/19 06:10 O2 Sat by Pulse Oximetry (%) Laboratory Last Values WBC 4.0 K/mm3 (4.0-10.0) 08/20/19 08:15 RBC 4.80 M/mm3 (4.00-5.60) 08/20/19 08:15 Hgb 11.4 GM/dL (11.7-16.9) L 08/20/19 08:15 Hct 35.0 % (35.4-49) L 08/20/19 08:15 MCV 72.8 fl (80-96) L 08/20/19 08:15 MCH 23.8 pg (25.7-33.7) L 08/20/19 08:15 MCHC 32.6 g/dl (32.0-35.9) 08/20/19 08:15 RDW 16.4 % (11.9-15.9) H 08/20/19 08:15 Plt Count 295 K/MM3 (134-434) 08/20/19 08:15 MPV 8.1 fl (7.5-11.1) 08/20/19 08:15 Sodium 139 mmol/L (136-145) 08/20/19 08:15 Potassium 4.3 mmol/L (3.5-5.1) 08/20/19 08:15 Chloride 106 mmol/L (98-107) 08/20/19 08:15 Carbon Dioxide 28 mmol/L (21-32) 08/20/19 08:15 Anion Gap 4 MMOL/L (8-16) L 08/20/19 08:15 BUN 16.0 mg/dL (7-18) 08/20/19 08:15 Creatinine 0.9 mg/dL (0.55-1.3) 08/20/19 08:15 Est GFR (CKD-EPI)AfAm 111.83 08/20/19 08:15 Est GFR (CKD-EPI)NonAf 96.49 08/20/19 08:15 Random Glucose 85 mg/dL (74-106) 08/20/19 08:15 Calcium 8.4 mg/dL (8.5-10.1) L 08/20/19 08:15 Total Bilirubin 0.4 mg/dL (0.2-1) 08/20/19 08:15 AST 26 U/L (15-37) 08/20/19 08:15 ALT 23 U/L (13-61) 08/20/19 08:15 Alkaline Phosphatase 86 U/L (45-117) 08/20/19 08:15 Total Protein 6.5 g/dl (6.4-8.2) 08/20/19 08:15 Albumin 3.0 g/dl (3.4-5.0) L 08/20/19 08:15 RPR Titer Nonreactive (NONREACTIVE) 08/20/19 08:15 Assessment: 08/21/19 10:05 withdrawal symptom Plan: continue detox methadone and librium regimen
[2019-08-21] MEDS: PRENATAL VITAMINS W/ FOLIC ACID TABLET (FP) PO SCH (10:11)
[2019-08-21] MEDS: NICOTINE 14 MG/24 HOURS TOPICAL PATCH TD SCH (10:12)
--- NOTE | 2019-08-21 10:35 | PN ---
[facility] Progress Note Note: patient did not want to complete treatment,decline to give reason,stated he has to leave,high risk of relapsing explained,understood all attempts to convince patient to stay with no avail,patient signed release ama,advise to call 911 if not feeling well
--- NOTE | 2019-08-21 10:37 | DS ---
[facility] Detox Discharge Summary Admission Date: 08/19/19 Discharge Date: 08/21/19 - History Present History: Alcohol Dependence, Cannabis Dependence, Cocaine Dependence, Opioid Dependence Additional Comments: patient left ama Pertinent Past History: nicotine dependence ambulation with cane - Physical Exam Results Vital Signs: Vital Signs Temperature 99.0 F 08/21/19 10:18 Pulse Rate 53 L 08/21/19 10:18 Respiratory Rate 20 08/21/19 10:18 Blood Pressure 132/61 08/21/19 10:18 O2 Sat by Pulse Oximetry (%) Pertinent Admission Physical Exam Findings: withdrawal signs and symptom Laboratory Last Values WBC 4.0 K/mm3 (4.0-10.0) 08/20/19 08:15 RBC 4.80 M/mm3 (4.00-5.60) 08/20/19 08:15 Hgb 11.4 GM/dL (11.7-16.9) L 08/20/19 08:15 Hct 35.0 % (35.4-49) L 08/20/19 08:15 MCV 72.8 fl (80-96) L 08/20/19 08:15 MCH 23.8 pg (25.7-33.7) L 08/20/19 08:15 MCHC 32.6 g/dl (32.0-35.9) 08/20/19 08:15 RDW 16.4 % (11.9-15.9) H 08/20/19 08:15 Plt Count 295 K/MM3 (134-434) 08/20/19 08:15 MPV 8.1 fl (7.5-11.1) 08/20/19 08:15 Sodium 139 mmol/L (136-145) 08/20/19 08:15 Potassium 4.3 mmol/L (3.5-5.1) 08/20/19 08:15 Chloride 106 mmol/L (98-107) 08/20/19 08:15 Carbon Dioxide 28 mmol/L (21-32) 08/20/19 08:15 Anion Gap 4 MMOL/L (8-16) L 08/20/19 08:15 BUN 16.0 mg/dL (7-18) 08/20/19 08:15 Creatinine 0.9 mg/dL (0.55-1.3) 08/20/19 08:15 Est GFR (CKD-EPI)AfAm 111.83 08/20/19 08:15 Est GFR (CKD-EPI)NonAf 96.49 08/20/19 08:15 Random Glucose 85 mg/dL (74-106) 08/20/19 08:15 Calcium 8.4 mg/dL (8.5-10.1) L 08/20/19 08:15 Total Bilirubin 0.4 mg/dL (0.2-1) 08/20/19 08:15 AST 26 U/L (15-37) 08/20/19 08:15 ALT 23 U/L (13-61) 08/20/19 08:15 Alkaline Phosphatase 86 U/L (45-117) 08/20/19 08:15 Total Protein 6.5 g/dl (6.4-8.2) 08/20/19 08:15 Albumin 3.0 g/dl (3.4-5.0) L 08/20/19 08:15 RPR Titer Nonreactive (NONREACTIVE) 08/20/19 08:15 Vital Signs Temperature 99.0 F 08/21/19 10:18 Pulse Rate 53 L 08/21/19 10:18 Respiratory Rate 20 08/21/19 10:18 Blood Pressure 132/61 08/21/19 10:18 O2 Sat by Pulse Oximetry (%) - Medication Discharge Medications: Ambulatory Orders NK [No Known Home Medication] 11/27/17 - Diagnosis (1) Alcohol dependence with uncomplicated withdrawal Current Visit: No Status: Chronic (2) Cannabis dependence, uncomplicated Current Visit: No Status: Chronic (3) Congenital bow leg Current Visit: No Status: Chronic (4) Nicotine dependence Current Visit: No Status: Chronic Qualifiers: Nicotine product type: cigarettes Substance use status: uncomplicated Qualified Code(s): F17.210 - Nicotine dependence, cigarettes, uncomplicated (5) Opioid dependence with withdrawal Current Visit: No Status: Chronic - AMA Did Patient Leave Against Medical Advice: Yes
[2019-08-21 13:08] VITALS: BP 133/73; PULSE 56; TEMP 99.9
[2019-08-22] MEDS ORDERED: chlordiazePOXIDE HCL 10 MG CAPSULE PO PRN
[2019-08-22] MEDS ORDERED: chlordiazePOXIDE HCL 10 MG CAPSULE PO SCH (05:00)
[2019-08-22] MEDS ORDERED: METHADONE (DETOX) 10 MG, METHADONE (DETOX) 5 MG PO ONE (10:00)
[2019-08-23] MEDS ORDERED: chlordiazePOXIDE HCL 10 MG CAPSULE PO ONE (05:00)
[2019-08-23] MEDS ORDERED: METHADONE HCL 10 MG TABLET (FOR DETOX USE ONLY) PO ONE (10:00)
[2019-08-24] MEDS ORDERED: METHADONE HCL 5 MG TABLET (FOR DETOX USE ONLY) PO ONE (06:00)
== END 2019-08-21 12:35 | disposition left against medical advice (07) | DRG 770 ==
LOC: YASAS 10:17 → Y6N 13:43
PROVIDERS: ADMIT Allergy & Immunology; ATTEND Allergy & Immunology
PROC: HZ2ZZZZ Detoxification Services for Substance Abuse Treatment (ICD-10-PCS; principal; 2019-08-19)
DX: F10.230 Alcohol dependence with withdrawal, uncomplicated (principal); F11.23 Opioid dependence with withdrawal; F14.20 Cocaine dependence, uncomplicated; F12.20 Cannabis dependence, uncomplicated; F17.210 Nicotine dependence, cigarettes, uncomplicated; F51.05 Insomnia due to other mental disorder; M12.9 Arthropathy, unspecified; R76.11 Nonspecific reaction to tuberculin skin test without active tuberculosis; Q68.5 Congenital bowing of long bones of leg, unspecified; Z99.89 Dependence on other enabling machines and devices; Z90.49 Acquired absence of other specified parts of digestive tract
CPT/HCPCS: 36415; 80053; 85027; 86593

== ENCOUNTER 2019-10-28 09:33 | Inpatient (IN) | payer OTHER ==
[2019-10-28 10:24] VITALS: BMI 26.7
--- NOTE | 2019-10-28 12:24 | HP ---
COWS - Scale Resting Pulse: 0= [place] 80 or Below Sweatin= No chills or Flushing Restless Observation: 0= Sits Still Pupil Size: 0= Normal to Room Light Bone or Joint Aches: 1= Mild Discomfort Runny Nose/ Eye Tearin= None GI Upset > 30mins: 2= Nausea/Diarrhea Tremor Observation: 0= None Yawning Observation: 0= None Anxiety or Irritability: 0= None Goose Flesh Skin: 0=Smooth Skin COWS Score: 3 CIWA Score Nausea/Vomitin-Mild Nausea/No Vomiting Muscle Tremors: None Anxiety: 0-No Anxiety, at Ease Agitation: 0-Normal Activity Paroxysmal Sweats: No Perspiration Orientation: 0-Oriented Tacttile Disturbances: 0-None Auditory Disturbances: 0-None Visual Disturbances: 0-None Headache: 3-Moderate CIWA-Ar Total Score: 4 - Admission Criteria OASAS Guidelines: Admission for Medically Managed Detox: Requires at least one of the followin. CIWA greater than 12 2. Seizures within the past 24 hours 3. Delirium tremens within the past 24 hours 4. Hallucinations within the past 24 hours 5. Acute intervention needed for co occurring medical disorder 6. Acute intervention needed for co occurring psychiatric disorder 7. Severe withdrawal that cannot be handled at a lower level of care (continued vomiting, continued diarrhea, abnormal vital signs) requiring intravenous medication and/or fluids 8. Admitting History and Physical - Primary Care Physician PCP: unknown, in the [place] - Admission Chief Complaint: Here for Detox History of Present Illness: 54 yo M PMH of arthritis presents to [facility] for detox. pt states that he wants to detox from alcohol. Has completed detox program in the past, never did rehab. Heroin: Daily use, 20 bags per day. Uses IV. Last used last night. Started at age 13. EtOH: Daily use, half gallon vodka. Last drink 12 hrs ago. Started in 1998. Cocaine: daily use. $20 per day. Last used 12 hrs ago. Methadone: 10mg, last taken 2 days ago. gets from streets, not in a program. Marijuana: daily use cannot quantify amount Cigarettes: smokes 1 pack per day "for a lot of years" PSH: splenectomy Social hx: homeless. Not currently working. All: NKDA/ NKFA Meds: none History Source: Patient - Past Medical History Rheumatology: Yes: Other (arthritis unspecified) - Past Surgical History Past Surgical History: Yes: Splenectomy - Smoking History Smoking history: Current every day smoker Have you smoked in the past 12 months: Yes Aproximately how many cigarettes per day: 20 If you are a former smoker, when did you quit?: 6 months ago - Alcohol/Substance Use Hx Alcohol Use: Yes History of Substance Use: reports: Cocaine, Heroin, Marijuana, Prescription Admission ROS BHS - HPI Allergies/Adverse Reactions: Allergies Allergy/AdvReac Type Severity Reaction Status Date / Time No Known Allergies Allergy Verified 10/28/19 09:54 - Ebola screening Have you traveled outside of the country in the last 21 days: No Have you had contact with anyone from an Ebola affected area: No Do you have a fever: No - Review of Systems Constitutional: No Symptoms Reported Respiratory: denies: Orthopnea, Shortness of Breath Cardiac: denies: Chest Pain, Palpitations GI: reports: Nausea. denies: Vomiting Musculoskeletal: reports: Joint Pain, Joint Stiffness Neuro: denies: Headache, Numbness, Paresthesia Psychiatric: denies: Agitated, Anxious Patient History - Patient Medical History Hx Anemia: No Hx Asthma: No Hx Chronic Obstructive Pulmonary Disease (COPD): No Hx Cancer: No Hx Cardiac Disorders: No Hx Congestive Heart Failure: No Hx Hypertension: No Hx Hypercholesterolemia: No Hx Pacemaker: No HX Cerebrovascular Accident: No Hx Seizures: No Hx Dementia: No Hx Diabetes: No Hx Gastrointestinal Disorders: No Hx Liver Disease: No Hx Genitourinary Disorders: No Hx Sexually Transmitted Disorders: No Hx Renal Disease (ESRD): No Hx Thyroid Disease: No Hx Human Immunodeficiency Virus (HIV): No (LAST 2016 NEGATIVE) Hx Hepatitis C: No Hx Depression: No Hx Suicide Attempt: No Hx Bipolar Disorder: No Hx Schizophrenia: No - Patient Surgical History Past Surgical History: No Hx Neurologic Surgery: No Hx Cataract Extraction: No Hx Cardiac Surgery: No Hx Lung Surgery: No Hx Breast Surgery: No Hx Breast Biopsy: No Hx Abdominal Surgery: Yes (SPLENECTOMY AT AGE OF 88 YEARS OLD POST TRAUMA) Hx Appendectomy: No Hx Cholecystectomy: No Hx Genitourinary Surgery: No Hx Section: No Hx Orthopedic Surgery: No Anesthesia Reaction: No - Smoking Cessation Smoking history: Current every day smoker Have you smoked in the past 12 months: Yes Aproximately how many cigarettes per day: 20 If you are a former smoker, when did you quit?: 6 months ago Cigars Per Day: 0 Hx Chewing Tobacco Use: No Initiated information on smoking cessation: Yes 'Breaking Loose' booklet given: 10/28/19 - Substances abused Heroin Substance route: Injection Frequency: Daily Amount used: 2 bundles Age of first use: 13 Date of last use: 10/28/19 Alcohol Substance route: Oral Frequency: Daily Amount used: 1/2 gallon of vodka Age of first use: 13 Date of last use: 10/27/19 Admission Physical Exam S - Vital Signs Vital Signs: Vital Signs - 24 hr 10/28/19 09:54 Temperature 97.4 F L Pulse Rate 54 L Respiratory 20 Rate Blood Pressure 116/69 - Physical General Appearance: Yes: Within Normal Limits, No Apparent Distress, Nourished HEENTM: Yes: EOMI, Hearing grossly Normal, Normocephalic, Normal Voice, Pharynx Normal Respiratory: Yes: Within Normal Limits, Chest Non-Tender, Lungs Clear, Normal Breath Sounds, No Accessory Muscle Use Cardiology: Yes: Within Normal Limits, Regular Rhythm, Regular Rate, S1, S2. No : JVD Abdominal: Yes: Within Normal Limits, Normal Bowel Sounds, Non Tender, Soft, Hernia (L injuinal hernia, reducible, non tender). No: Tenderness Back: Yes: Normal Inspection. No: CVA Tenderness, Vertebral Tenderness Extremities: Yes: Normal Inspection, Swelling (b/l LE edema), Other (injection almanza on b/l forearms). No: Calf Tenderness Integumentary: Yes: Dry, Warm Breathalyzer - Breathalyzer Breathalyzer: 0 Urine Drug Screen - Test Device Lot number: [id number] Expiration date: 05/14/21 - Control Is test valid?: Yes - Results Drug screen NEGATIVE: No Urine drug screen results: THC-Marijuana, VASHTI-Cocaine, FEN-Fentanyl, MOP-Opiates , MTD-Methadone Inpatient Rehab Admission - Rehab Decision to Admit Inpatient rehab admission?: Yes - Initial Determination Are CD services needed?: No Free of communicable disease: Yes Not in need of hospitalization: No - Rehab Admission Criteria Previous failed treatment: Yes Poor recovery environment: Yes Comorbidities: Yes Lacks judgement: No Patient is meeting Inpatient Rehab admission criteria:: Yes
[2019-10-28] MEDS ORDERED: MELATONIN 5 MG TABLETS PO PRN (13:01)
[2019-10-28] MEDS ORDERED: MAGNESIUM HYDROX 2400MG/30ML ORAL SUSPENSION 30 ML CUP PO PRN (13:01)
[2019-10-28] MEDS ORDERED: hydrOXYzine PAMOATE 25 MG CAPSULE (FP) PO PRN (13:01)
[2019-10-28] MEDS ORDERED: MENTHOL/PHENOL 1 EACH UD MM PRN (13:01)
[2019-10-28] MEDS ORDERED: MAG HYDROX/AL HYDROX/SIMETH 30 ML UNIT-DOSE CUP PO PRN (13:01)
[2019-10-28] MEDS ORDERED: MAGNESIUM CITRATE 300 ML BOTTLE PO PRN (13:01)
[2019-10-28] MEDS ORDERED: BISMUTH SUBSALICYLATE 262 MG/15 ML BTL PO PRN (13:01)
[2019-10-28] MEDS ORDERED: ACETAMINOPHEN 325 MG TABLET (FP) PO PRN ×2 (13:01)
[2019-10-28] MEDS ORDERED: IBUPROFEN 400 MG TABLET (FP) PO PRN (13:01)
--- NOTE | 2019-10-28 13:01 | PN ---
Teaching Attending Note Name of Resident: Klaudia Fajardo ATTENDING PHYSICIAN STATEMENT I saw and evaluated the patient. I reviewed the resident's note and discussed the case with the resident. I agree with the resident's findings and plan as documented. SUBJECTIVE: 54 y.o. male pt here requesting detox from etoh use , claims 1/2 gallon /liquor / day , latest use yesterday . Previously reported only beer 6 x 6-pk x 12 oz / PMH arthritis , r wrist dislocation , Heroin: first age of use 13, Daily 20 bags IV, in [facility] 60 mg per MR EtOH: Daily use, only drinks beer. Drinks 6-7 6 packs 12 oz. cans. Last drink 10 hrs ago. Started in 1998. Cocaine: 1 gr per day IV Marijuana: daily use cannot quantify amount Cigarettes: smokes 1 pack per day "for a lot of years" PSH: splenectomy OBJECTIVE: overweight, drowsy , falls asleep frequently during interview, awakened w/ difficulty via verbal stimuli . UE vinay hands/ wrist deformities . Vital Signs - 24 hr LE : R LE deformity , ambulating w/ rolling walker. 10/28/19 09:54 Temperature 97.4 F L Pulse Rate 54 L Respiratory 20 Rate Blood Pressure 116/69 ASSESSMENT AND PLAN: [facility] - Valium detox Smoking cessation counselling.
[2019-10-28] MEDS ORDERED: diazePAM 5 MG TABLET PO PRN (13:02)
[2019-10-28] MEDS: diazePAM 5 MG TABLET PO SCH ×2 (13:49→22:38)
[2019-10-28] MEDS: THIAMINE HCL 100 MG TABLET (FP) PO SCH (22:37)
[2019-10-29] MEDS ORDERED: METHADONE HCL 40 MG DISPERSABLE TABLET ONE (05:05)
[2019-10-29] MEDS ORDERED: METHADONE HCL 10 MG TABLET ONE (05:05)
[2019-10-29] MEDS ORDERED: METHADONE HCL 10 MG TABLET PO SCH (06:00)
[2019-10-29] MEDS: METHADONE 40 MG, METHADONE 20 MG PO SCH (06:38)
[2019-10-29] MEDS: diazePAM 5 MG TABLET PO SCH ×3 (06:39→22:37)
[2019-10-29 09:40] LABS: HEMATOCRIT 35.7 % (35.4-49); HEMOGLOBIN 11.6 GM/dL (11.7-16.9); MCH 24.1 pg (25.7-33.7); MCHC 32.6 g/dl (32.0-35.9); MEAN PLT VOLUME 7.8 fl (7.5-11.1); PLATELET COUNT 334 K/MM3 (134-434); RBC 4.82 M/mm3 (4.00-5.60); RDW 16.7 % (11.9-15.9); WHITE BLOOD COUNT 3.7 K/mm3 (4.0-10.0)
[2019-10-29 09:57] LABS: BILIRUBIN,TOTAL 0.7 mg/dL (0.2-1); BLOOD UREA NITROGEN 12.9 mg/dL (7-18); CALCIUM 8.7 mg/dL (8.5-10.1); POTASSIUM 4.4 mmol/L (3.5-5.1); TOT PROT 6.5 g/dl (6.4-8.2)
[2019-10-29] MEDS: PRENATAL VITAMINS W/ FOLIC ACID TABLET (FP) PO SCH (12:25)
--- NOTE | 2019-10-29 14:22 | PN ---
S CIWA - CIWA Score Nausea/Vomitin Muscle Tremors: 2 Anxiety: 2 Agitation: 2 Paroxysmal Sweats: No Perspiration Orientation: 0-Oriented Tacttile Disturbances: 1-Very Mild Itch/Numbness Auditory Disturbances: 0-None Visual Disturbances: 1-Very Mild Sensitivity Headache: 2-Mild CIWA-Ar Total Score: 12 [facility] Progress Note (SOAP) Subjective: alert,irritable,anxious,interrupted sleep,pain in the body,tremor Objective: 10/29/19 14:20 Vital Signs Temperature 98.2 F 10/29/19 12:01 Pulse Rate 57 L 10/29/19 12:01 Respiratory Rate 16 10/29/19 12:01 Blood Pressure 136/70 10/29/19 12:01 O2 Sat by Pulse Oximetry (%) 10/29/19 14:20 Laboratory Last Values WBC 3.7 K/mm3 (4.0-10.0) L 10/29/19 08:10 RBC 4.82 M/mm3 (4.00-5.60) 10/29/19 08:10 Hgb 11.6 GM/dL (11.7-16.9) L 10/29/19 08:10 Hct 35.7 % (35.4-49) 10/29/19 08:10 MCV 74.0 fl (80-96) L 10/29/19 08:10 MCH 24.1 pg (25.7-33.7) L 10/29/19 08:10 MCHC 32.6 g/dl (32.0-35.9) 10/29/19 08:10 RDW 16.7 % (11.9-15.9) H 10/29/19 08:10 Plt Count 334 K/MM3 (134-434) 10/29/19 08:10 MPV 7.8 fl (7.5-11.1) 10/29/19 08:10 Sodium 138 mmol/L (136-145) 10/29/19 08:10 Potassium 4.4 mmol/L (3.5-5.1) 10/29/19 08:10 Chloride 107 mmol/L (98-107) 10/29/19 08:10 Carbon Dioxide 30 mmol/L (21-32) 10/29/19 08:10 Anion Gap 1 MMOL/L (8-16) L 10/29/19 08:10 BUN 12.9 mg/dL (7-18) 10/29/19 08:10 Creatinine 1.0 mg/dL (0.55-1.3) 10/29/19 08:10 Est GFR (CKD-EPI)AfAm 98.46 10/29/19 08:10 Est GFR (CKD-EPI)NonAf 84.95 10/29/19 08:10 Random Glucose 90 mg/dL (74-106) 10/29/19 08:10 Calcium 8.7 mg/dL (8.5-10.1) 10/29/19 08:10 Total Bilirubin 0.7 mg/dL (0.2-1) 10/29/19 08:10 AST 68 U/L (15-37) H 10/29/19 08:10 ALT 123 U/L (13-61) H 10/29/19 08:10 Alkaline Phosphatase 97 U/L (45-117) 10/29/19 08:10 Total Protein 6.5 g/dl (6.4-8.2) 10/29/19 08:10 Albumin 3.0 g/dl (3.4-5.0) L 10/29/19 08:10 HIV 1&2 Antibody Screen Negative 10/29/19 08:10 HIV P24 Antigen Negative 10/29/19 08:10 Assessment: 10/29/19 14:21 withdrawal symptom Plan: continue detox valium regimen,repeat ast,alt,inr in am due to elevation of ast, alt
[2019-10-29] MEDS: THIAMINE HCL 100 MG TABLET (FP) PO SCH (22:37)
[2019-10-30] MEDS ORDERED: METHADONE HCL 40 MG DISPERSABLE TABLET ONE (04:03)
[2019-10-30] MEDS ORDERED: METHADONE HCL 10 MG TABLET ONE (04:03)
[2019-10-30] MEDS ORDERED: diazePAM 5 MG TABLET PO ONE (06:00)
[2019-10-30] MEDS: METHADONE 40 MG, METHADONE 20 MG PO SCH (06:23)
--- NOTE | 2019-10-30 09:25 | PN ---
[facility] CIWA - CIWA Score Nausea/Vomitin-No Nausea/No Vomiting Muscle Tremors: 1-None Visible, but [place] Anxiety: 1-Mildly Anxious Agitation: 0-Normal Activity Paroxysmal Sweats: No Perspiration Orientation: 0-Oriented Tacttile Disturbances: 0-None Auditory Disturbances: 0-None Visual Disturbances: 0-None Headache: 0-None Present CIWA-Ar Total Score: 2 [facility] Progress Note (SOAP) Subjective: little anxiety Objective: 10/30/19 09:21 Vital Signs Temperature 98.1 F 10/30/19 07:30 Pulse Rate 55 L 10/30/19 07:30 Respiratory Rate 18 10/30/19 07:30 Blood Pressure 129/70 10/30/19 07:30 O2 Sat by Pulse Oximetry (%) aaox3 ambulating no acute distress Assessment: 10/30/19 09:21 mild to no s/s of withdrawals Plan: d/c today
--- NOTE | 2019-10-30 09:30 | DS ---
[facility] Detox Discharge Summary Admission Date: 10/28/19 Discharge Date: 10/30/19 - History Present History: Alcohol Dependence, Cannabis Dependence, Cocaine Dependence - Physical Exam Results Vital Signs: Vital Signs Temperature 98.1 F 10/30/19 07:30 Pulse Rate 55 L 10/30/19 07:30 Respiratory Rate 18 10/30/19 07:30 Blood Pressure 129/70 10/30/19 07:30 O2 Sat by Pulse Oximetry (%) Pertinent Admission Physical Exam Findings: Vital Signs Temperature 98.1 F 10/30/19 07:30 Pulse Rate 55 L 10/30/19 07:30 Respiratory Rate 18 10/30/19 07:30 Blood Pressure 129/70 10/30/19 07:30 O2 Sat by Pulse Oximetry (%) Laboratory Tests 10/29/19 10/29/19 10/29/19 08:10 08:10 08:10 WBC 3.7 L RBC 4.82 Hgb 11.6 L Hct 35.7 MCV 74.0 L MCH 24.1 L MCHC 32.6 RDW 16.7 H Plt Count 334 MPV 7.8 Sodium 138 Potassium 4.4 Chloride 107 Carbon Dioxide 30 Anion Gap 1 L BUN 12.9 Creatinine 1.0 Est GFR (CKD-EPI)AfAm 98.46 Est GFR (CKD-EPI)NonAf 84.95 Random Glucose 90 Calcium 8.7 Total Bilirubin 0.7 AST 68 H ALT 123 H Alkaline Phosphatase 97 Total Protein 6.5 Albumin 3.0 L HIV 1&2 Antibody Screen Negative HIV P24 Antigen Negative aaox3 ambulating no acute distress - Treatment Hospital Course: Detox Protocol Followed, Detoxed Safely, Responded well, Discharged Condition Good, Rehab Referral Accepted Patient has Accepted a Rehab Referral to: referred to in patient rehab - Medication Discharge Medications: Ambulatory Orders NK [No Known Home Medication] 11/27/17 - Diagnosis (1) Cocaine dependence, uncomplicated Current Visit: Yes Status: Chronic (2) Insomnia secondary to depression with anxiety Current Visit: No Status: Acute (3) Alcohol dependence with uncomplicated withdrawal Current Visit: Yes Status: Chronic (4) Cannabis dependence, uncomplicated Current Visit: Yes Status: Chronic (5) Congenital bow leg Current Visit: No Status: Chronic (6) Nicotine dependence Current Visit: No Status: Chronic Qualifiers: Nicotine product type: cigarettes Substance use status: uncomplicated Qualified Code(s): F17.210 - Nicotine dependence, cigarettes, uncomplicated (7) Opioid dependence with withdrawal Current Visit: Yes Status: Chronic (8) PPD positive, treated Current Visit: No Status: Resolved - AMA Did Patient Leave Against Medical Advice: No
[2019-10-30 09:58] VITALS: BP 112/60; PULSE 51; TEMP 98.2
[2019-10-30] MEDS: PRENATAL VITAMINS W/ FOLIC ACID TABLET (FP) PO SCH (11:24)
[2019-10-30 11:39] LABS: SGOT/AST 74 U/L (15-37); SGPT/ALT 127 U/L (13-61)
[2019-10-30 11:44] LABS: INR 1.04 (0.83-1.09); PROTHROMBIN TIME (PATIENT) 12.3 SEC (9.7-13.0)
== END 2019-10-30 14:05 | disposition other institution (70) | DRG 773 ==
LOC: YASAS 09:33 → Y6N 13:12
PROVIDERS: ADMIT Allergy & Immunology; ATTEND Allergy & Immunology
PROC: HZ2ZZZZ Detoxification Services for Substance Abuse Treatment (ICD-10-PCS; principal; 2019-10-28)
DX: F10.230 Alcohol dependence with withdrawal, uncomplicated (principal); F11.23 Opioid dependence with withdrawal; F14.20 Cocaine dependence, uncomplicated; F12.20 Cannabis dependence, uncomplicated; F17.210 Nicotine dependence, cigarettes, uncomplicated; F51.05 Insomnia due to other mental disorder; Q68.5 Congenital bowing of long bones of leg, unspecified; M12.9 Arthropathy, unspecified; R76.11 Nonspecific reaction to tuberculin skin test without active tuberculosis; Z90.81 Acquired absence of spleen; Z59.0 Homelessness
CPT/HCPCS: 36415; 80053; 84450; 84460; 85027; 85610; 87389

== ENCOUNTER 2019-10-30 14:11 | Inpatient (IN) | payer OTHER ==
--- NOTE | 2019-10-30 11:23 | HP ---
[facility] Re[facility] Assess/Revision - Admission History Admitted to Rehab from: [facility] [address] [facility] Date of Admission to Rehab: 10/30/2019 - Findings Detox History & Physical reviewed: Yes Concur with findings: Yes Inpatient Rehab Admission - Rehab Decision to Admit Inpatient rehab admission?: Yes - Initial Determination Are CD services needed?: Yes Free of communicable disease: Yes Not in need of hospitalization: Yes - Rehab Admission Criteria Previous failed treatment: Yes Poor recovery environment: Yes Comorbidities: Yes Lacks judgement: Yes Patient is meeting Inpatient Rehab admission criteria:: Yes
[~2019-10-30 14:11] MED LIST: ACETAMINOPHEN 325 MG TABLET (FP) PO PRN; IBUPROFEN 400 MG TABLET (FP) PO PRN; LOPERAMIDE HCL 2 MG CAPSULE PO PRN; MAG HYDROX/AL HYDROX/SIMETH 30 ML UNIT-DOSE CUP PO PRN; MAGNESIUM CITRATE 300 ML BOTTLE PO PRN; MAGNESIUM HYDROX 2400MG/30ML ORAL SUSPENSION 30 ML CUP PO PRN; MENTHOL/PHENOL 1 EACH UD MM PRN; NICOTINE POLACRILEX 2 MG GUM BUC PRN; P-EPHED 60MG/TRIPROLIDI 2.5MG TABLET PO PRN; guaiFENesin 200 MG/10 ML 10 ML UNIT-DOSE CUPS PO PRN; hydrOXYzine PAMOATE 25 MG CAPSULE (FP) PO PRN
[2019-10-30] MEDS: MELATONIN 5 MG TABLETS PO PRN (21:48)
[2019-10-30] MEDS: THIAMINE HCL 100 MG TABLET (FP) PO SCH (21:48)
[2019-10-31] MEDS ORDERED: METHADONE HCL 10 MG TABLET PO SCH (06:30)
[2019-10-31] MEDS ORDERED: METHADONE HCL 40 MG DISPERSABLE TABLET ONE (07:41)
[2019-10-31] MEDS ORDERED: METHADONE HCL 10 MG TABLET ONE (07:41)
[2019-10-31] MEDS: METHADONE 40 MG, METHADONE 20 MG PO SCH (07:42)
[2019-10-31] MEDS: PRENATAL VITAMINS W/ FOLIC ACID TABLET (FP) PO SCH (10:16)
[2019-10-31] MEDS: NICOTINE 14 MG/24 HOURS TOPICAL PATCH TD SCH (10:16)
--- NOTE | 2019-10-31 12:19 | PN ---
[facility] Progress Note Note: Pt is a 54 y/o male with a hx of PAKO-alcohol heroin,cocaine, marijuana and on Methadone 60 mg poa daily @ [place], [place] admitted to rehab from [address] [place] [address] on 10/30/19. PMHx:Arthritis, Bilateral knees. PSx: Spleenectomy. Psych Hx: denies. Pt reports he has a primary care at [facility] on [address] [place] [address]. C/o loss of appetite, fatigue. Vital Signs - 24 hr 10/30/19 10/31/19 10/31/19 15:14 00:30 03:30 Temperature 98.1 F Pulse Rate 50 L Respiratory 18 18 18 Rate Blood Pressure 109/72 10/31/19 07:42 Temperature 98.0 F Pulse Rate 57 L Respiratory 18 Rate Blood Pressure 133/72 Alert o x 3, denies s/h/i nad oob ambulating with walker. extremities/skin: no edema, right/left knees bony prominence(bow legged), dry and ashy, skin intact. A/P new rehab patient s/p detox Maintain safety increase po fluids ensure plus 1 can po bid motrin prn as directed for pain Robaxin prn as directed for muscle spasms
[2019-10-31] MEDS ORDERED: METHOCARBAMOL 500 MG TABLET PO PRN (12:32)
[2019-10-31] MEDS: THIAMINE HCL 100 MG TABLET (FP) PO SCH (21:36)
[2019-10-31] MEDS: MELATONIN 5 MG TABLETS PO PRN (21:36)
[2019-11-01] MEDS ORDERED: METHADONE HCL 10 MG TABLET ONE (04:14)
[2019-11-01] MEDS ORDERED: METHADONE HCL 40 MG DISPERSABLE TABLET ONE (04:14)
[2019-11-01] MEDS: METHADONE 40 MG, METHADONE 20 MG PO SCH (06:36)
[2019-11-01] MEDS: NICOTINE 14 MG/24 HOURS TOPICAL PATCH TD SCH (10:54)
[2019-11-01] MEDS: PRENATAL VITAMINS W/ FOLIC ACID TABLET (FP) PO SCH (10:54)
[2019-11-01] MEDS: IBUPROFEN 600 MG TABLET (FP) PO PRN (10:56)
[2019-11-01] MEDS: THIAMINE HCL 100 MG TABLET (FP) PO SCH (21:44)
[2019-11-02] MEDS ORDERED: METHADONE HCL 10 MG TABLET ONE (04:22)
[2019-11-02] MEDS ORDERED: METHADONE HCL 40 MG DISPERSABLE TABLET ONE (04:23)
[2019-11-02] MEDS: METHADONE 40 MG, METHADONE 20 MG PO SCH (06:20)
[2019-11-02] MEDS: NICOTINE 14 MG/24 HOURS TOPICAL PATCH TD SCH (10:26)
[2019-11-02] MEDS: PRENATAL VITAMINS W/ FOLIC ACID TABLET (FP) PO SCH (10:26)
[2019-11-02] MEDS: THIAMINE HCL 100 MG TABLET (FP) PO SCH (22:04)
[2019-11-02] MEDS: MELATONIN 5 MG TABLETS PO PRN (22:04)
[2019-11-03] MEDS ORDERED: METHADONE HCL 10 MG TABLET ONE (05:59)
[2019-11-03] MEDS ORDERED: METHADONE HCL 40 MG DISPERSABLE TABLET ONE (05:59)
[2019-11-03] MEDS: METHADONE 40 MG, METHADONE 20 MG PO SCH (06:24)
[2019-11-03] MEDS: NICOTINE 14 MG/24 HOURS TOPICAL PATCH TD SCH (10:24)
[2019-11-03] MEDS: PRENATAL VITAMINS W/ FOLIC ACID TABLET (FP) PO SCH (10:25)
[2019-11-03] MEDS: MELATONIN 5 MG TABLETS PO PRN (21:32)
[2019-11-03] MEDS: THIAMINE HCL 100 MG TABLET (FP) PO SCH (21:32)
[2019-11-04] MEDS ORDERED: METHADONE HCL 40 MG DISPERSABLE TABLET ONE (06:21)
[2019-11-04] MEDS ORDERED: METHADONE HCL 10 MG TABLET ONE (06:21)
[2019-11-04] MEDS: METHADONE 40 MG, METHADONE 20 MG PO SCH (06:39)
[2019-11-04] MEDS: PRENATAL VITAMINS W/ FOLIC ACID TABLET (FP) PO SCH (09:39)
[2019-11-04] MEDS: NICOTINE 14 MG/24 HOURS TOPICAL PATCH TD SCH (09:40)
--- NOTE | 2019-11-04 10:30 | PN ---
[facility] Progress Note Note: c/o hard BM and requesting stool softener. Vital Signs - 24 hr 11/04/19 11/04/19 11/04/19 00:30 03:30 06:06 Temperature 98.1 F Pulse Rate 55 L Respiratory 18 18 18 Rate Blood Pressure 118/75 Alert ox3 nad oob ambulating with walker A/P Constipation Colace 300 mg po HS D/w pt to increase po fluids as well.
[2019-11-04] MEDS: DOCUSATE SODIUM 100 MG CAPSULE (FP) PO SCH (21:55)
[2019-11-04] MEDS: THIAMINE HCL 100 MG TABLET (FP) PO SCH (21:56)
[2019-11-05] MEDS ORDERED: METHADONE HCL 10 MG TABLET ONE (05:51)
[2019-11-05] MEDS ORDERED: METHADONE HCL 40 MG DISPERSABLE TABLET ONE (05:52)
[2019-11-05] MEDS: METHADONE 40 MG, METHADONE 20 MG PO SCH (06:19)
[2019-11-05] MEDS: NICOTINE 14 MG/24 HOURS TOPICAL PATCH TD SCH (10:50)
[2019-11-05] MEDS: PRENATAL VITAMINS W/ FOLIC ACID TABLET (FP) PO SCH (10:50)
[2019-11-05] MEDS: VITAMINS A AND D TOPICAL OINTMENT 60 GM TUBE TP SCH (13:50)
[2019-11-05] MEDS: DOCUSATE SODIUM 100 MG CAPSULE (FP) PO SCH (21:47)
[2019-11-05] MEDS: THIAMINE HCL 100 MG TABLET (FP) PO SCH (21:47)
[2019-11-05] MEDS: IBUPROFEN 600 MG TABLET (FP) PO PRN (21:49)
[2019-11-06] MEDS ORDERED: METHADONE HCL 10 MG TABLET ONE (04:27)
[2019-11-06] MEDS ORDERED: METHADONE HCL 40 MG DISPERSABLE TABLET ONE (04:27)
[2019-11-06] MEDS: METHADONE 40 MG, METHADONE 20 MG PO SCH (06:08)
[2019-11-06] MEDS: NICOTINE 14 MG/24 HOURS TOPICAL PATCH TD SCH (10:31)
[2019-11-06] MEDS: PRENATAL VITAMINS W/ FOLIC ACID TABLET (FP) PO SCH (10:32)
[2019-11-06] MEDS: IBUPROFEN 600 MG TABLET (FP) PO PRN (10:32)
[2019-11-06] MEDS: VITAMINS A AND D TOPICAL OINTMENT 60 GM TUBE TP SCH (10:32)
[2019-11-06] MEDS: DOCUSATE SODIUM 100 MG CAPSULE (FP) PO SCH (21:37)
[2019-11-06] MEDS: MELATONIN 5 MG TABLETS PO PRN (21:38)
[2019-11-06] MEDS: THIAMINE HCL 100 MG TABLET (FP) PO SCH (21:38)
[2019-11-07] MEDS ORDERED: METHADONE HCL 10 MG TABLET ONE (05:49)
[2019-11-07] MEDS ORDERED: METHADONE HCL 40 MG DISPERSABLE TABLET ONE (05:49)
[2019-11-07] MEDS: METHADONE 40 MG, METHADONE 20 MG PO SCH (06:00)
[2019-11-07] MEDS: PRENATAL VITAMINS W/ FOLIC ACID TABLET (FP) PO SCH (10:50)
[2019-11-07] MEDS: NICOTINE 14 MG/24 HOURS TOPICAL PATCH TD SCH (10:51)
[2019-11-07] MEDS: VITAMINS A AND D TOPICAL OINTMENT 60 GM TUBE TP SCH (10:51)
[2019-11-07] MEDS: IBUPROFEN 600 MG TABLET (FP) PO PRN ×2 (10:52→21:27)
[2019-11-07] MEDS: THIAMINE HCL 100 MG TABLET (FP) PO SCH (21:27)
[2019-11-07] MEDS: DOCUSATE SODIUM 100 MG CAPSULE (FP) PO SCH (21:27)
[2019-11-08] MEDS ORDERED: METHADONE HCL 40 MG DISPERSABLE TABLET ONE (05:24)
[2019-11-08] MEDS ORDERED: METHADONE HCL 10 MG TABLET ONE (05:24)
[2019-11-08] MEDS ORDERED: METHADONE HCL 10 MG TABLET PO SCH (06:00)
[2019-11-08] MEDS: METHADONE 40 MG, METHADONE 20 MG PO SCH (06:05)
[2019-11-08] MEDS: IBUPROFEN 600 MG TABLET (FP) PO PRN ×2 (06:07→21:55)
[2019-11-08] MEDS: NICOTINE 14 MG/24 HOURS TOPICAL PATCH TD SCH (10:15)
[2019-11-08] MEDS: PRENATAL VITAMINS W/ FOLIC ACID TABLET (FP) PO SCH (10:16)
[2019-11-08] MEDS: VITAMINS A AND D TOPICAL OINTMENT 60 GM TUBE TP SCH (10:18)
[2019-11-08] MEDS: DOCUSATE SODIUM 100 MG CAPSULE (FP) PO SCH (21:53)
[2019-11-08] MEDS: THIAMINE HCL 100 MG TABLET (FP) PO SCH (21:54)
[2019-11-08] MEDS: MELATONIN 5 MG TABLETS PO PRN (21:55)
[2019-11-09] MEDS ORDERED: METHADONE HCL 10 MG TABLET ONE (04:22)
[2019-11-09] MEDS ORDERED: METHADONE HCL 40 MG DISPERSABLE TABLET ONE (04:22)
[2019-11-09] MEDS: METHADONE 40 MG, METHADONE 20 MG PO SCH (06:14)
[2019-11-09] MEDS: IBUPROFEN 600 MG TABLET (FP) PO PRN (06:16)
[2019-11-09] MEDS: VITAMINS A AND D TOPICAL OINTMENT 60 GM TUBE TP SCH (10:56)
[2019-11-09] MEDS: PRENATAL VITAMINS W/ FOLIC ACID TABLET (FP) PO SCH (10:56)
[2019-11-09] MEDS: NICOTINE 14 MG/24 HOURS TOPICAL PATCH TD SCH (10:56)
[2019-11-09] MEDS: DOCUSATE SODIUM 100 MG CAPSULE (FP) PO SCH (21:46)
[2019-11-09] MEDS: THIAMINE HCL 100 MG TABLET (FP) PO SCH (21:47)
[2019-11-10] MEDS ORDERED: METHADONE HCL 40 MG DISPERSABLE TABLET ONE (04:23)
[2019-11-10] MEDS ORDERED: METHADONE HCL 10 MG TABLET ONE (04:23)
[2019-11-10] MEDS: METHADONE 40 MG, METHADONE 20 MG PO SCH (06:02)
[2019-11-10] MEDS: PRENATAL VITAMINS W/ FOLIC ACID TABLET (FP) PO SCH (11:45)
[2019-11-10] MEDS: VITAMINS A AND D TOPICAL OINTMENT 60 GM TUBE TP SCH (11:45)
[2019-11-10] MEDS: NICOTINE 14 MG/24 HOURS TOPICAL PATCH TD SCH (11:45)
[2019-11-10] MEDS ORDERED: DOCUSATE SODIUM 100 MG CAPSULE (FP) PO ONE (14:00)
[2019-11-10] MEDS: THIAMINE HCL 100 MG TABLET (FP) PO SCH (22:08)
[2019-11-10] MEDS: DOCUSATE SODIUM 100 MG CAPSULE (FP) PO SCH (22:08)
[2019-11-11] MEDS ORDERED: METHADONE HCL 40 MG DISPERSABLE TABLET ONE (05:51)
[2019-11-11] MEDS ORDERED: METHADONE HCL 10 MG TABLET ONE (05:51)
[2019-11-11] MEDS: METHADONE 40 MG, METHADONE 20 MG PO SCH (06:42)
[2019-11-11] MEDS: DOCUSATE SODIUM 100 MG CAPSULE (FP) PO SCH ×2 (10:20→22:06)
[2019-11-11] MEDS: IBUPROFEN 600 MG TABLET (FP) PO PRN (10:21)
[2019-11-11] MEDS: NICOTINE 14 MG/24 HOURS TOPICAL PATCH TD SCH (10:22)
[2019-11-11] MEDS: PRENATAL VITAMINS W/ FOLIC ACID TABLET (FP) PO SCH (10:22)
[2019-11-11] MEDS: VITAMINS A AND D TOPICAL OINTMENT 60 GM TUBE TP SCH (10:27)
[2019-11-11] MEDS: THIAMINE HCL 100 MG TABLET (FP) PO SCH (22:07)
[2019-11-12] MEDS ORDERED: METHADONE HCL 10 MG TABLET ONE (04:32)
[2019-11-12] MEDS ORDERED: METHADONE HCL 40 MG DISPERSABLE TABLET ONE (04:32)
[2019-11-12] MEDS: METHADONE 40 MG, METHADONE 20 MG PO SCH (06:38)
[2019-11-12] MEDS: DOCUSATE SODIUM 100 MG CAPSULE (FP) PO SCH ×2 (10:54→22:02)
[2019-11-12] MEDS: NICOTINE 14 MG/24 HOURS TOPICAL PATCH TD SCH (10:55)
[2019-11-12] MEDS: PRENATAL VITAMINS W/ FOLIC ACID TABLET (FP) PO SCH (10:55)
[2019-11-12] MEDS: VITAMINS A AND D TOPICAL OINTMENT 60 GM TUBE TP SCH (10:55)
[2019-11-12] MEDS: THIAMINE HCL 100 MG TABLET (FP) PO SCH (22:02)
[2019-11-13] MEDS ORDERED: METHADONE HCL 10 MG TABLET ONE (04:35)
[2019-11-13] MEDS ORDERED: METHADONE HCL 40 MG DISPERSABLE TABLET ONE (04:35)
[2019-11-13] MEDS: METHADONE 40 MG, METHADONE 20 MG PO SCH (05:59)
[2019-11-13] MEDS: PRENATAL VITAMINS W/ FOLIC ACID TABLET (FP) PO SCH (10:55)
[2019-11-13] MEDS: DOCUSATE SODIUM 100 MG CAPSULE (FP) PO SCH ×2 (10:55→21:58)
[2019-11-13] MEDS: NICOTINE 14 MG/24 HOURS TOPICAL PATCH TD SCH (10:55)
[2019-11-13] MEDS: VITAMINS A AND D TOPICAL OINTMENT 60 GM TUBE TP SCH (10:55)
--- NOTE | 2019-11-13 11:37 | DS ---
[facility] Rehab Discharge Summary - [facility] Rehab Discharge Summary Admission Date: 10/30/19 Discharge Date: 11/14/19 - History Present History: Alcohol dependence, Cannabis dependence, Cocaine dependence, MMTP Additional Comments: pt is a 54 y/o male with a hx of PAKO admitted to rehab and scheduled for discharge on 11/14/19. Pt reports he has a primary care at [facility] on [address] [place] [address]. Pertinent Past History: Congenital Wallace legged - Discharge Physical Exam Vital Signs: Vital Signs Temperature 98.1 F 11/13/19 07:24 Pulse Rate 58 L 11/13/19 07:24 Respiratory Rate 18 11/13/19 07:24 Blood Pressure 108/64 11/13/19 07:24 O2 Sat by Pulse Oximetry (%) Alert o x 3,denies s/h/i nad oob ambulating with steaddy gait cardiac:s1 s2 Pertinent Admission Physical Exam Findings: Status stable and unchanged. - Treatment Discharge Condition: Discharge condition good Hospital Course: Safety maintained while in treatment Pt rarely participated in group activities but visible on and around the unit when at his choosing. - Medication Discharge Medications: Ambulatory Orders NK [No Known Home Medication] 11/27/17 - Medication-Assisted Treatment (MAT) Medication-Assisted Treatment (MAT): No - Discharge Instructions Diet, activity, other medical instructions: Diet:Regular Activity: oob ad ann with walker Other medical instructions:follow up with CD aftercare at [facility] as scheduled. follow up with primary care at [place], [place] within 1-2 weeks after discharge. - Diagnosis (1) Methadone maintenance therapy patient Status: Chronic (2) Cannabis dependence, uncomplicated Status: Chronic (3) Cocaine dependence, uncomplicated Status: Chronic (4) Congenital bow leg Status: Chronic (5) Nicotine dependence Status: Chronic Qualifiers: Nicotine product type: cigarettes Substance use status: uncomplicated Qualified Code(s): F17.210 - Nicotine dependence, cigarettes, uncomplicated (6) Constipation Status: Chronic Qualifiers: Constipation type: slow transit constipation Qualified Code(s): K59.01 - Slow transit constipation - Follow-up Referral Minutes to complete discharge: 20 - AMA Did Patient Leave Against Medical Advice: No
[2019-11-13] MEDS: THIAMINE HCL 100 MG TABLET (FP) PO SCH (21:58)
[2019-11-14] MEDS ORDERED: METHADONE HCL 40 MG DISPERSABLE TABLET ONE (04:22)
[2019-11-14] MEDS ORDERED: METHADONE HCL 10 MG TABLET ONE (04:22)
[2019-11-14] MEDS ORDERED: METHADONE 40 MG, METHADONE 20 MG PO SCH (06:00)
[2019-11-14] MEDS ORDERED: METHADONE HCL 10 MG TABLET PO SCH (06:00)
[2019-11-14 07:16] VITALS: BP 115/68; PULSE 57; TEMP 98.2
[2019-11-14] MEDS: NICOTINE 14 MG/24 HOURS TOPICAL PATCH TD SCH (09:15)
[2019-11-14] MEDS: PRENATAL VITAMINS W/ FOLIC ACID TABLET (FP) PO SCH (09:15)
[2019-11-14] MEDS: DOCUSATE SODIUM 100 MG CAPSULE (FP) PO SCH (09:15)
[2019-11-14] MEDS: VITAMINS A AND D TOPICAL OINTMENT 60 GM TUBE TP SCH (09:16)
[2019-11-14] MEDS: IBUPROFEN 600 MG TABLET (FP) PO PRN (09:17)
--- NOTE | 2019-11-14 12:16 | PN ---
[facility] Progress Note Note: Pt was discharged today as scheduled. Vital Signs - 24 hr 11/14/19 11/14/19 11/14/19 00:30 03:30 07:15 Temperature 98.2 F Pulse Rate 57 L Respiratory 16 18 18 Rate Blood Pressure 115/68 Alert o x 3,denies s/h/i nad oob ambulating with walker A/P Medically Stable D/CD pt today Reminded pt to follow up with CD aftercare and primary care as discussed.
== END 2019-11-14 10:20 | disposition home or self-care (01) | DRG 772 ==
LOC: YASAS 14:11 → Y5N 14:12
PROVIDERS: ADMIT Neuromusculoskeletal Medicine & OMM; ATTEND Neuromusculoskeletal Medicine & OMM
PROC: HZ42ZZZ Group Counseling for Substance Abuse Treatment, Cognitive-Behavioral (ICD-10-PCS; principal; 2019-10-30)
DX: F10.20 Alcohol dependence, uncomplicated (principal); F11.20 Opioid dependence, uncomplicated; F14.20 Cocaine dependence, uncomplicated; F12.20 Cannabis dependence, uncomplicated; F17.210 Nicotine dependence, cigarettes, uncomplicated; K59.01 Slow transit constipation; Q68.5 Congenital bowing of long bones of leg, unspecified

== ENCOUNTER 2021-06-04 08:45 | Inpatient (IN) | payer OTHER ==
[2021-06-04 12:27] VITALS: BMI 25.6
[2021-06-04] MEDS ORDERED: MAGNESIUM CITRATE 300 ML BOTTLE PO PRN (17:14)
[2021-06-04] MEDS ORDERED: ONDANSETRON *ODT* 4 MG TABLET SL PRN (17:14)
[2021-06-04] MEDS ORDERED: MENTHOL/PHENOL 1 EACH UD MM PRN (17:14)
[2021-06-04] MEDS ORDERED: diazePAM 5 MG TABLET PO PRN (17:14)
[2021-06-04] MEDS ORDERED: ACETAMINOPHEN 325 MG TABLET (FP) PO PRN ×2 (17:14)
[2021-06-04] MEDS ORDERED: BISMUTH SUBSALICYLATE 524 MG/30 ML PO PRN (17:14)
[2021-06-04] MEDS ORDERED: IBUPROFEN 400 MG TABLET (FP) PO PRN (17:14)
[2021-06-04] MEDS ORDERED: MAGNESIUM HYDROX 2400MG/30ML ORAL SUSPENSION 30 ML CUP PO PRN (17:14)
[2021-06-04] MEDS ORDERED: MAG HYDROX/AL HYDROX/SIMETH 30 ML UNIT-DOSE CUP PO PRN (17:14)
[2021-06-04] MEDS ORDERED: METHOCARBAMOL 500 MG TABLET PO PRN (17:14)
[2021-06-04] MEDS ORDERED: diazePAM 5 MG TABLET PO ONE (17:14)
[2021-06-05] MEDS: hydrOXYzine PAMOATE 25 MG CAPSULE (FP) PO SCH ×4 (00:46→10:40)
[2021-06-05] MEDS ORDERED: diazePAM 5 MG TABLET ONE ×3 (00:47→11:39)
[2021-06-05] MEDS: MELATONIN 5 MG TABLETS PO SCH ×2 (00:53→23:11)
[2021-06-05] MEDS: diazePAM 5 MG TABLET PO SCH ×5 (00:53→23:11)
[2021-06-05] MEDS: THIAMINE HCL 100 MG TABLET (FP) PO SCH ×2 (00:53→23:11)
[2021-06-05] MEDS ORDERED: ONDANSETRON *ODT* 4 MG TABLET ONE ×2 (04:25→07:51)
[2021-06-05] MEDS ORDERED: TRIMETHOBENZAMIDE HCL 200MG/2ML INJ IM ONE ×2 (05:10→19:43)
[2021-06-05] MEDS ORDERED: methaDONE HCL 10 MG TABLET PO ONE ×2 (05:12→08:57)
[2021-06-05] MEDS ORDERED: methaDONE HCL 10 MG TABLET (FOR DETOX USE ONLY) ONE ×2 (05:23→10:33)
[2021-06-05] MEDS ORDERED: ONDANSETRON *ODT* 4 MG TABLET SL ONE (07:46)
[2021-06-05] MEDS ORDERED: methaDONE 40 MG, methaDONE 20 MG PO ONE (10:30)
[2021-06-05] MEDS ORDERED: hydrOXYzine PAMOATE 25 MG CAPSULE (FP) PO ONE (10:40)
[2021-06-05] MEDS ORDERED: methaDONE HCL 10 MG TABLET (FOR DETOX USE ONLY) PO ONE (10:45)
[2021-06-05] MEDS: PRENATAL VITAMINS W/ FOLIC ACID TABLET (FP) PO SCH (11:39)
[2021-06-05] MEDS: amLODIPine BESYLATE 10 MG TABLET (FP) PO SCH (14:20)
[2021-06-06] MEDS ORDERED: methaDONE HCL 10 MG TABLET ONE (04:05)
[2021-06-06] MEDS ORDERED: methaDONE HCL 40 MG DISPERSABLE TABLET ONE (04:06)
[2021-06-06] MEDS ORDERED: methaDONE HCL 10 MG TABLET PO SCH (06:00)
[2021-06-06] MEDS: diazePAM 5 MG TABLET PO SCH ×3 (06:06→23:32)
[2021-06-06] MEDS: methaDONE 80 MG, methaDONE 10 MG PO SCH (06:06)
[2021-06-06] MEDS: PRENATAL VITAMINS W/ FOLIC ACID TABLET (FP) PO SCH (10:52)
[2021-06-06] MEDS: amLODIPine BESYLATE 10 MG TABLET (FP) PO SCH (10:52)
[2021-06-06 17:13] LABS: HEMATOCRIT 43.7 % (35.4-49); MCH 22.7 pg (25.7-33.7); MEAN PLT VOLUME 8.4 fl (7.5-11.1); PLATELET COUNT 318 10^3/uL (134-434); RBC 6.15 M/mm3 (4.00-5.60); RDW 16.8 % (11.9-15.9); WHITE BLOOD COUNT 10.8 K/mm3 (4.0-10.0)
[2021-06-06 17:18] LABS: CALCIUM 9.3 mg/dL (8.5-10.1)
[2021-06-06 17:19] LABS: ALBUMIN 3.6 g/dl (3.4-5.0); BLOOD UREA NITROGEN 22.2 mg/dL (7-18)
[2021-06-06 17:24] LABS: BILIRUBIN,TOTAL 0.8 mg/dL (0.2-1); TOT PROT 8.2 g/dl (6.4-8.2)
[2021-06-06] MEDS: THIAMINE HCL 100 MG TABLET (FP) PO SCH (23:32)
[2021-06-06] MEDS: MELATONIN 5 MG TABLETS PO SCH (23:32)
[2021-06-07] MEDS ORDERED: methaDONE HCL 10 MG TABLET ONE (04:05)
[2021-06-07] MEDS ORDERED: methaDONE HCL 40 MG DISPERSABLE TABLET ONE (04:06)
[2021-06-07] MEDS: methaDONE 80 MG, methaDONE 10 MG PO SCH (05:11)
[2021-06-07] MEDS: diazePAM 5 MG TABLET PO SCH ×2 (05:12→17:32)
[2021-06-07] MEDS: PRENATAL VITAMINS W/ FOLIC ACID TABLET (FP) PO SCH (10:42)
[2021-06-07] MEDS: amLODIPine BESYLATE 10 MG TABLET (FP) PO SCH (10:42)
[2021-06-07] MEDS ORDERED: BISACODYL 5 MG TABLET.DR (FP) PO ONE (21:05)
[2021-06-07] MEDS ORDERED: DOCUSATE SODIUM 100 MG CAPSULE (FP) PO ONE (21:16)
[2021-06-07] MEDS: THIAMINE HCL 100 MG TABLET (FP) PO SCH (21:39)
[2021-06-07] MEDS: MELATONIN 5 MG TABLETS PO SCH (21:39)
[2021-06-08] MEDS ORDERED: methaDONE HCL 10 MG TABLET ONE (04:10)
[2021-06-08] MEDS ORDERED: methaDONE HCL 40 MG DISPERSABLE TABLET ONE (04:10)
[2021-06-08] MEDS: methaDONE 80 MG, methaDONE 10 MG PO SCH (05:45)
[2021-06-08] MEDS ORDERED: diazePAM 5 MG TABLET PO ONE (06:00)
[2021-06-08 09:54] VITALS: BP 124/69; PULSE 56; TEMP 98.7
[2021-06-08] MEDS: amLODIPine BESYLATE 10 MG TABLET (FP) PO SCH (10:49)
[2021-06-08] MEDS: PRENATAL VITAMINS W/ FOLIC ACID TABLET (FP) PO SCH (10:49)
[2021-06-08] MEDS ORDERED: DOCUSATE SODIUM 100 MG CAPSULE (FP) PO ONE (12:00)
[2021-06-08] MEDS ORDERED: DOCUSATE SODIUM 100 MG CAPSULE (FP) PO SCH (14:00)
== END 2021-06-08 12:14 | disposition other institution (70) | DRG 773 ==
LOC: YASAS 08:45 → Y6N 06-05 11:56
PROVIDERS: ADMIT Allergy & Immunology; ATTEND Allergy & Immunology
PROC: HZ2ZZZZ Detoxification Services for Substance Abuse Treatment (ICD-10-PCS; principal; 2021-06-05)
DX: F10.230 Alcohol dependence with withdrawal, uncomplicated (principal); F11.20 Opioid dependence, uncomplicated; F14.20 Cocaine dependence, uncomplicated; F12.20 Cannabis dependence, uncomplicated; F17.290 Nicotine dependence, other tobacco product, uncomplicated; A53.0 Latent syphilis, unspecified as early or late; I10 Essential (primary) hypertension; K59.01 Slow transit constipation; R76.11 Nonspecific reaction to tuberculin skin test without active tuberculosis
CPT/HCPCS: 36415; 80053; 85027; 86593; 86780; 93005; 93010; C9803; Q0162; U0003; U0005

== ENCOUNTER 2021-06-08 12:22 | Inpatient (IN) | payer OTHER ==
[2021-06-08] MEDS ORDERED: MAGNESIUM HYDROX 2400MG/30ML ORAL SUSPENSION 30 ML CUP PO PRN (15:23)
[2021-06-08] MEDS ORDERED: IBUPROFEN 400 MG TABLET (FP) PO PRN (15:23)
[2021-06-08] MEDS ORDERED: P-EPHED 60MG/TRIPROLIDI 2.5MG TABLET PO PRN (15:23)
[2021-06-08] MEDS ORDERED: NICOTINE 10 MG CARTRIDGE (INHALER) IH PRN (15:23)
[2021-06-08] MEDS ORDERED: guaiFENesin 200 MG/10 ML 10 ML UNIT-DOSE CUPS PO PRN (15:23)
[2021-06-08] MEDS ORDERED: ACETAMINOPHEN 325 MG TABLET (FP) PO PRN (15:23)
[2021-06-08] MEDS ORDERED: MAGNESIUM CITRATE 300 ML BOTTLE PO PRN (15:23)
[2021-06-08] MEDS ORDERED: MAG HYDROX/AL HYDROX/SIMETH 30 ML UNIT-DOSE CUP PO PRN (15:23)
[2021-06-08] MEDS ORDERED: MENTHOL/PHENOL 1 EACH UD MM PRN (15:23)
[2021-06-08] MEDS ORDERED: LOPERAMIDE HCL 2 MG CAPSULE PO PRN (15:23)
[2021-06-08] MEDS ORDERED: cloNIDine HCL 0.1 MG TABLET PO PRN (15:24)
[2021-06-08] MEDS: hydrOXYzine PAMOATE 25 MG CAPSULE (FP) PO SCH ×2 (19:05→21:40)
[2021-06-08] MEDS: THIAMINE HCL 100 MG TABLET (FP) PO SCH (21:40)
[2021-06-08] MEDS: MELATONIN 5 MG TABLETS PO SCH (21:40)
[2021-06-09] MEDS ORDERED: methaDONE HCL 10 MG TABLET ONE (06:00)
[2021-06-09] MEDS ORDERED: methaDONE HCL 10 MG TABLET PO SCH (06:00)
[2021-06-09] MEDS ORDERED: methaDONE HCL 40 MG DISPERSABLE TABLET ONE (06:00)
[2021-06-09] MEDS: hydrOXYzine PAMOATE 25 MG CAPSULE (FP) PO SCH ×5 (06:07→21:18)
[2021-06-09] MEDS: methaDONE 80 MG, methaDONE 10 MG PO SCH (06:07)
[2021-06-09] MEDS: NICOTINE 7 MG/24 HOURS TOPICAL PATCH TD SCH (10:21)
[2021-06-09] MEDS: PRENATAL VITAMINS W/ FOLIC ACID TABLET (FP) PO SCH (10:21)
[2021-06-09] MEDS: MELATONIN 5 MG TABLETS PO SCH (21:17)
[2021-06-09] MEDS: THIAMINE HCL 100 MG TABLET (FP) PO SCH (21:17)
[2021-06-09] MEDS: DOCUSATE SODIUM 100 MG CAPSULE (FP) PO SCH (21:18)
[2021-06-10] MEDS ORDERED: methaDONE HCL 10 MG TABLET ONE (03:15)
[2021-06-10] MEDS ORDERED: methaDONE HCL 40 MG DISPERSABLE TABLET ONE (03:15)
[2021-06-10] MEDS: DOCUSATE SODIUM 100 MG CAPSULE (FP) PO SCH ×3 (06:13→21:29)
[2021-06-10] MEDS: methaDONE 80 MG, methaDONE 10 MG PO SCH (06:13)
[2021-06-10] MEDS: hydrOXYzine PAMOATE 25 MG CAPSULE (FP) PO SCH ×5 (06:13→21:29)
[2021-06-10] MEDS: PRENATAL VITAMINS W/ FOLIC ACID TABLET (FP) PO SCH (10:15)
[2021-06-10] MEDS: NICOTINE 7 MG/24 HOURS TOPICAL PATCH TD SCH (10:15)
[2021-06-10] MEDS: amLODIPine BESYLATE 10 MG TABLET (FP) PO SCH (10:15)
[2021-06-10] MEDS: MELATONIN 5 MG TABLETS PO SCH (21:29)
[2021-06-10] MEDS: THIAMINE HCL 100 MG TABLET (FP) PO SCH (21:29)
[2021-06-11] MEDS ORDERED: methaDONE HCL 10 MG TABLET ONE (03:23)
[2021-06-11] MEDS ORDERED: methaDONE HCL 40 MG DISPERSABLE TABLET ONE (03:23)
[2021-06-11] MEDS: hydrOXYzine PAMOATE 25 MG CAPSULE (FP) PO SCH ×5 (06:11→21:24)
[2021-06-11] MEDS: methaDONE 80 MG, methaDONE 10 MG PO SCH (06:11)
[2021-06-11] MEDS: DOCUSATE SODIUM 100 MG CAPSULE (FP) PO SCH ×3 (06:11→21:24)
[2021-06-11] MEDS: amLODIPine BESYLATE 10 MG TABLET (FP) PO SCH (10:27)
[2021-06-11] MEDS: PRENATAL VITAMINS W/ FOLIC ACID TABLET (FP) PO SCH (10:27)
[2021-06-11] MEDS: NICOTINE 7 MG/24 HOURS TOPICAL PATCH TD SCH (10:28)
[2021-06-11] MEDS: THIAMINE HCL 100 MG TABLET (FP) PO SCH (21:24)
[2021-06-11] MEDS: MELATONIN 5 MG TABLETS PO SCH (21:24)
[2021-06-12] MEDS ORDERED: methaDONE HCL 10 MG TABLET ONE (05:22)
[2021-06-12] MEDS ORDERED: methaDONE HCL 40 MG DISPERSABLE TABLET ONE (05:22)
[2021-06-12] MEDS: DOCUSATE SODIUM 100 MG CAPSULE (FP) PO SCH ×3 (06:38→21:41)
[2021-06-12] MEDS: methaDONE 80 MG, methaDONE 10 MG PO SCH (06:38)
[2021-06-12] MEDS: hydrOXYzine PAMOATE 25 MG CAPSULE (FP) PO SCH ×5 (06:38→21:41)
[2021-06-12] MEDS: NICOTINE 7 MG/24 HOURS TOPICAL PATCH TD SCH (09:58)
[2021-06-12] MEDS: PRENATAL VITAMINS W/ FOLIC ACID TABLET (FP) PO SCH (09:58)
[2021-06-12] MEDS: amLODIPine BESYLATE 10 MG TABLET (FP) PO SCH (09:58)
[2021-06-12] MEDS: THIAMINE HCL 100 MG TABLET (FP) PO SCH (21:41)
[2021-06-12] MEDS: MELATONIN 5 MG TABLETS PO SCH (21:41)
[2021-06-13] MEDS ORDERED: methaDONE HCL 10 MG TABLET ONE (03:32)
[2021-06-13] MEDS ORDERED: methaDONE HCL 40 MG DISPERSABLE TABLET ONE (03:32)
[2021-06-13] MEDS: hydrOXYzine PAMOATE 25 MG CAPSULE (FP) PO SCH ×5 (06:17→21:05)
[2021-06-13] MEDS: DOCUSATE SODIUM 100 MG CAPSULE (FP) PO SCH ×3 (06:17→21:05)
[2021-06-13] MEDS: methaDONE 80 MG, methaDONE 10 MG PO SCH (06:17)
[2021-06-13] MEDS: amLODIPine BESYLATE 10 MG TABLET (FP) PO SCH (10:13)
[2021-06-13] MEDS: PRENATAL VITAMINS W/ FOLIC ACID TABLET (FP) PO SCH (10:13)
[2021-06-13] MEDS: NICOTINE 7 MG/24 HOURS TOPICAL PATCH TD SCH (10:13)
[2021-06-13] MEDS: MELATONIN 5 MG TABLETS PO SCH (21:05)
[2021-06-13] MEDS: THIAMINE HCL 100 MG TABLET (FP) PO SCH (21:05)
[2021-06-14] MEDS ORDERED: methaDONE HCL 40 MG DISPERSABLE TABLET ONE (03:11)
[2021-06-14] MEDS ORDERED: methaDONE HCL 10 MG TABLET ONE (03:12)
[2021-06-14] MEDS: methaDONE 80 MG, methaDONE 10 MG PO SCH (06:22)
[2021-06-14] MEDS: DOCUSATE SODIUM 100 MG CAPSULE (FP) PO SCH (06:22)
[2021-06-14] MEDS: hydrOXYzine PAMOATE 25 MG CAPSULE (FP) PO SCH (06:22)
[2021-06-14 07:12] VITALS: BP 130/77; PULSE 54; TEMP 98.6
== END 2021-06-14 08:48 | disposition home or self-care (01) | DRG 772 ==
LOC: YASAS 12:22 → Y3W 12:24
PROVIDERS: ADMIT Allergy & Immunology; ATTEND Allergy & Immunology
PROC: HZ42ZZZ Group Counseling for Substance Abuse Treatment, Cognitive-Behavioral (ICD-10-PCS; principal; 2021-06-08)
DX: F11.20 Opioid dependence, uncomplicated (principal); F10.20 Alcohol dependence, uncomplicated; F14.20 Cocaine dependence, uncomplicated

== ENCOUNTER 2021-09-20 10:31 | Inpatient (IN) | payer OTHER ==
[2021-09-20] MEDS ORDERED: IBUPROFEN 400 MG TABLET (FP) PO PRN (10:56)
[2021-09-20] MEDS ORDERED: MAGNESIUM HYDROX 2400MG/30ML ORAL SUSPENSION 30 ML CUP PO PRN (10:56)
[2021-09-20] MEDS ORDERED: METHOCARBAMOL 500 MG TABLET PO PRN (10:56)
[2021-09-20] MEDS ORDERED: MENTHOL/PHENOL 1 EACH UD MM PRN (10:56)
[2021-09-20] MEDS ORDERED: MAGNESIUM CITRATE 300 ML BOTTLE PO PRN (10:56)
[2021-09-20] MEDS ORDERED: BISMUTH SUBSALICYLATE 524 MG/30 ML PO PRN (10:56)
[2021-09-20] MEDS ORDERED: NICOTINE 10 MG CARTRIDGE (INHALER) IH PRN (10:56)
[2021-09-20] MEDS ORDERED: ACETAMINOPHEN 325 MG TABLET (FP) PO PRN ×2 (10:56)
[2021-09-20] MEDS ORDERED: MAG HYDROX/AL HYDROX/SIMETH 30 ML UNIT-DOSE CUP PO PRN (10:56)
[2021-09-20] MEDS ORDERED: chlordiazePOXIDE HCL 25 MG CAPSULE PO PRN (10:56)
[2021-09-20] MEDS ORDERED: ONDANSETRON *ODT* 4 MG TABLET SL PRN (10:56)
[2021-09-20] MEDS ORDERED: chlordiazePOXIDE HCL 25 MG CAPSULE PO SCH (11:00)
[2021-09-20] MEDS ORDERED: PRENATAL VITAMINS W/ FOLIC ACID TABLET (FP) PO SCH (11:00)
[2021-09-20 11:05] VITALS: BMI 26.2
[2021-09-20] MEDS ORDERED: NICOTINE 14 MG/24 HOURS TOPICAL PATCH TD SCH (11:30)
[2021-09-20 13:18] VITALS: BP 174/82; PULSE 45; TEMP 97.8
[2021-09-20] MEDS ORDERED: DOCUSATE SODIUM 100 MG CAPSULE (FP) PO SCH (14:00)
[2021-09-20] MEDS ORDERED: hydrOXYzine PAMOATE 25 MG CAPSULE (FP) PO SCH (14:00)
[2021-09-20] MEDS ORDERED: TRIMETHOBENZAMIDE HCL 200MG/2ML INJ IM ONE (14:30)
[2021-09-20] MEDS ORDERED: methaDONE HCL 40 MG DISPERSABLE TABLET PO SCH (14:30)
[2021-09-20 15:21] LABS: HEMATOCRIT 37.1 % (35.4-49); HEMOGLOBIN 12.1 GM/dL (11.7-16.9); MCH 23.5 pg (25.7-33.7); MCHC 32.7 g/dl (32.0-35.9); MEAN CELL VOLUME 71.8 fl (80-96); MEAN PLT VOLUME 8.1 fl (7.5-11.1); PLATELET COUNT 285 10^3/uL (134-434); RBC 5.17 M/mm3 (4.00-5.60); RDW 16.9 % (11.9-15.9); WHITE BLOOD COUNT 4.9 K/mm3 (4.0-10.0)
[2021-09-20 15:35] LABS: CALCIUM 9.1 mg/dL (8.5-10.1)
[2021-09-20 15:36] LABS: ALBUMIN 3.4 g/dl (3.4-5.0); BLOOD UREA NITROGEN 15.4 mg/dL (7-18)
[2021-09-20 15:40] LABS: BILIRUBIN,TOTAL 0.5 mg/dL (0.2-1); TOT PROT 7.8 g/dl (6.4-8.2)
[2021-09-20] MEDS ORDERED: THIAMINE HCL 100 MG TABLET (FP) PO SCH (22:00)
[2021-09-20] MEDS ORDERED: MELATONIN 5 MG TABLETS PO SCH (22:00)
[2021-09-21] MEDS ORDERED: amLODIPine BESYLATE 10 MG TABLET (FP) PO SCH (10:00)
[2021-09-22] MEDS ORDERED: chlordiazePOXIDE HCL 25 MG CAPSULE PO SCH (05:00)
[2021-09-23] MEDS ORDERED: chlordiazePOXIDE HCL 10 MG CAPSULE PO PRN
[2021-09-23] MEDS ORDERED: chlordiazePOXIDE HCL 10 MG CAPSULE PO SCH (05:00)
[2021-09-24] MEDS ORDERED: chlordiazePOXIDE HCL 10 MG CAPSULE PO SCH (05:00)
[2021-09-25] MEDS ORDERED: chlordiazePOXIDE HCL 10 MG CAPSULE PO ONE (05:00)
== END 2021-09-20 17:00 | disposition short-term general hospital (02) | DRG 773 ==
LOC: YASAS 10:31 → Y6N 11:45
PROVIDERS: ADMIT Allergy & Immunology; ATTEND Allergy & Immunology
PROC: HZ2ZZZZ Detoxification Services for Substance Abuse Treatment (ICD-10-PCS; principal; 2021-09-20)
DX: F10.230 Alcohol dependence with withdrawal, uncomplicated (principal); F14.20 Cocaine dependence, uncomplicated; F11.20 Opioid dependence, uncomplicated; F12.20 Cannabis dependence, uncomplicated; F17.213 Nicotine dependence, cigarettes, with withdrawal; K59.01 Slow transit constipation; R76.8 Other specified abnormal immunological findings in serum; R03.0 Elevated blood-pressure reading, without diagnosis of hypertension; R46.4 Slowness and poor responsiveness; Z96.653 Presence of artificial knee joint, bilateral; Z86.11 Personal history of tuberculosis; Z56.0 Unemployment, unspecified; Z59.02 Unsheltered homelessness
CPT/HCPCS: 36415; 80053; 85027; 86593; 86780; C9803; U0003; U0005

== ENCOUNTER 2021-09-20 15:59 | Inpatient (IN) | payer OTHER ==
[2021-09-20 16:49] VITALS: BMI 32.5
[2021-09-20] MEDS ORDERED: LORazepam 2 MG/ML SDV VIAL IVPUSH ONE (17:27)
[2021-09-20] MEDS ORDERED: NALOXONE HCL 0.4 MG/ML VIAL IVPUSH ONE ×2 (17:32→19:06)
[2021-09-20] MEDS ORDERED: NALOXONE HCL 0.4 MG/ML VIAL ONE ×2 (18:07→19:22)
[2021-09-20] MEDS ORDERED: ONDANSETRON *ODT* 4 MG TABLET SL ONE (20:20)
[2021-09-21] MEDS: LACTATED RINGERS SOLUTION 1,000 ML/1,000 ML INFUS.BAG IV SCH ×2 (00:56→11:44)
[2021-09-21 01:03] LABS: HEMATOCRIT 40.4 % (35.4-49); MCH 22.9 pg (25.7-33.7); MCHC 32.2 g/dl (32.0-35.9); MEAN PLT VOLUME 7.6 fl (7.5-11.1); PLATELET COUNT 289 10^3/uL (134-434); RBC 5.69 M/mm3 (4.00-5.60); RDW 16.1 % (11.9-15.9); WHITE BLOOD COUNT 5.9 K/mm3 (4.0-10.0)
[2021-09-21 01:08] LABS: ARTERIAL BLD GAS O2 SATURATION 95.6 % (95-98); ARTERIAL BLOOD GAS BASE EXCESS -0.9 mmol/L (-2-2); ARTERIAL BLOOD GAS PO2 73.6 mmHg (80-100); ARTERIAL BLOOD GAS pH 7.453 (7.350-7.450)
[2021-09-21 01:11] LABS: ALLENS TEST POSITIVE
[2021-09-21 01:21] LABS: CALCIUM 9.2 mg/dL (8.5-10.1)
[2021-09-21 01:22] LABS: BLOOD UREA NITROGEN 16.1 mg/dL (7-18)
[2021-09-21 01:23] LABS: ALBUMIN 3.6 g/dl (3.4-5.0)
[2021-09-21 01:27] LABS: TOT PROT 8.3 g/dl (6.4-8.2)
[2021-09-21] MEDS ORDERED: hydrALAZINE HCL 20 MG/ML VIAL IVPUSH ONE ×2 (01:48→03:56)
[2021-09-21 02:51] LABS: INR 1.15 (0.83-1.09); PROTHROMBIN TIME (PATIENT) 12.9 SEC (9.7-13.0)
[2021-09-21 02:54] LABS: ACTIVATED PTT 31.6 SECONDS (25.2-36.5)
[2021-09-21 03:29] LABS: PH,URINE 8.5 (5.0-8.0); URINE APPEARANCE CLOUDY; URINE BILIRUBIN NEGATIVE (NEGATIVE); URINE COLOR YELLOW; URINE GLUCOSE (UA) NEGATIVE (NEGATIVE); URINE KETONE 2+ (NEGATIVE); URINE LEUK ESTERASE NEGATIVE (NEGATIVE); URINE NITRITE NEGATIVE (NEGATIVE); URINE PROTEIN TRACE (NEGATIVE)
[2021-09-21 03:37] LABS: PHENCYCLIDINE,URINE NEGATIVE (NEGATIVE); URINE BARBITURATES NEGATIVE (NEGATIVE); URINE BENZODIAZEPINES NEGATIVE (NEGATIVE)
[2021-09-21 03:43] LABS: COCAINE, UR POSITIVE (NEGATIVE); METHADONE, UR POSITIVE (NEGATIVE); OPIATES, URI POSITIVE (NEGATIVE); URINE AMPHETAMINES NEGATIVE (NEGATIVE)
[2021-09-21] MEDS ORDERED: HEPARIN NA (PORCINE) 5,000 UNITS/ML 1ML VIAL ONE (06:45)
[2021-09-21] MEDS: HEPARIN NA (PORCINE) 5,000 UNITS/ML 1ML VIAL SQ SCH ×3 (06:53→21:45)
[2021-09-21] MEDS ORDERED: ASPIRIN 325 MG TABLET PO ONE (11:07)
[2021-09-21] MEDS ORDERED: PT OWN MED DRAWER 7, Y5N ONE (11:42)
[2021-09-21] MEDS: amLODIPine BESYLATE 5 MG TABLET (FP) PO SCH (11:45)
[2021-09-21] MEDS ORDERED: LORazepam 2 MG/ML SDV VIAL IVPUSH PRN (14:39)
[2021-09-22] MEDS: HEPARIN NA (PORCINE) 5,000 UNITS/ML 1ML VIAL SQ SCH ×3 (05:28→22:05)
[2021-09-22] MEDS: ASPIRIN COATED 81 MG TABLET.EC PO SCH (09:51)
[2021-09-22] MEDS: amLODIPine BESYLATE 5 MG TABLET (FP) PO SCH (09:51)
[2021-09-22] MEDS: LISINOPRIL 10 MG TABLET PO SCH (14:08)
[2021-09-22] MEDS ORDERED: amLODIPine BESYLATE 2.5 MG TABLET (FP) PO ONE (16:39)
[2021-09-23] MEDS: HEPARIN NA (PORCINE) 5,000 UNITS/ML 1ML VIAL SQ SCH ×3 (06:11→22:24)
[2021-09-23 07:07] LABS: IGM QN SERUM 106 mg/dL (20-172)
[2021-09-23] MEDS: LISINOPRIL 10 MG TABLET PO SCH (10:01)
[2021-09-23] MEDS: ASPIRIN COATED 81 MG TABLET.EC PO SCH (10:01)
[2021-09-23] MEDS: amLODIPine BESYLATE 10 MG TABLET (FP) PO SCH (10:01)
[2021-09-24] MEDS ORDERED: MELATONIN 5 MG TABLETS PO ONE (01:37)
[2021-09-24] MEDS: HEPARIN NA (PORCINE) 5,000 UNITS/ML 1ML VIAL SQ SCH ×3 (06:52→21:08)
[2021-09-24] MEDS ORDERED: methaDONE HCL 40 MG DISPERSABLE TABLET PO ONE (11:00)
[2021-09-24] MEDS: ASPIRIN COATED 81 MG TABLET.EC PO SCH (11:05)
[2021-09-24] MEDS: THIAMINE HCL 100 MG TABLET (FP) PO SCH (11:06)
[2021-09-24] MEDS: LISINOPRIL 10 MG TABLET PO SCH (11:06)
[2021-09-24] MEDS: MULTIVITAMINS THER W-MINERALS COMBO TABLET (FP) PO SCH (11:06)
[2021-09-24] MEDS: amLODIPine BESYLATE 10 MG TABLET (FP) PO SCH (11:06)
[2021-09-24] MEDS: FOLIC ACID 1 MG TABLET (FP) PO SCH (11:08)
[2021-09-25] MEDS: HEPARIN NA (PORCINE) 5,000 UNITS/ML 1ML VIAL SQ SCH ×3 (05:36→21:56)
[2021-09-25] MEDS ORDERED: methaDONE HCL 10 MG TABLET PO ONE (09:34)
[2021-09-25] MEDS ORDERED: methaDONE HCL 40 MG DISPERSABLE TABLET PO SCH (10:00)
[2021-09-25] MEDS ORDERED: methaDONE HCL 40 MG DISPERSABLE TABLET ONE (10:16)
[2021-09-25] MEDS ORDERED: methaDONE HCL 10 MG TABLET ONE (10:18)
[2021-09-25] MEDS: MULTIVITAMINS THER W-MINERALS COMBO TABLET (FP) PO SCH (10:25)
[2021-09-25] MEDS: THIAMINE HCL 100 MG TABLET (FP) PO SCH (10:25)
[2021-09-25] MEDS: FOLIC ACID 1 MG TABLET (FP) PO SCH (10:26)
[2021-09-25] MEDS: LISINOPRIL 10 MG TABLET PO SCH (10:26)
[2021-09-25] MEDS: amLODIPine BESYLATE 10 MG TABLET (FP) PO SCH (10:26)
[2021-09-25] MEDS: ASPIRIN COATED 81 MG TABLET.EC PO SCH (10:26)
[2021-09-26] MEDS: HEPARIN NA (PORCINE) 5,000 UNITS/ML 1ML VIAL SQ SCH (06:07)
[2021-09-26] MEDS ORDERED: methaDONE HCL 40 MG DISPERSABLE TABLET ONE (09:54)
[2021-09-26] MEDS ORDERED: methaDONE HCL 10 MG TABLET ONE (09:55)
[2021-09-26 10:29] VITALS: BP 132/63; PULSE 55; TEMP 98.6
[2021-09-26 10:44] LABS: HEMATOCRIT 43.5 % (35.4-49); HEMOGLOBIN 14.3 GM/dL (11.7-16.9); LYMPH % 49.8 % (8-40); MCH 23.5 pg (25.7-33.7); MCHC 32.9 g/dl (32.0-35.9); MEAN CELL VOLUME 71.4 fl (80-96); MONO % 8.8 % (3.8-10.2); NEUT % 38.4 % (42.8-82.8); PLATELET COUNT 276 10^3/uL (134-434); RDW 16.2 % (11.9-15.9); WHITE BLOOD COUNT 5.7 K/mm3 (4.0-10.0)
[2021-09-26 11:03] LABS: ALBUMIN 3.5 g/dl (3.4-5.0); CALCIUM 9.1 mg/dL (8.5-10.1)
[2021-09-26 11:04] LABS: BLOOD UREA NITROGEN 35.1 mg/dL (7-18); MAGNESIUM 2.2 mg/dL (1.8-2.4)
[2021-09-26 11:06] LABS: CREATININE 1.1 mg/dL (0.55-1.3)
[2021-09-26 11:08] LABS: BILIRUBIN,TOTAL 0.8 mg/dL (0.2-1)
[2021-09-26] MEDS: MULTIVITAMINS THER W-MINERALS COMBO TABLET (FP) PO SCH (11:45)
[2021-09-26] MEDS: LISINOPRIL 10 MG TABLET PO SCH (11:45)
[2021-09-26] MEDS: FOLIC ACID 1 MG TABLET (FP) PO SCH (11:45)
[2021-09-26] MEDS: amLODIPine BESYLATE 10 MG TABLET (FP) PO SCH (11:45)
[2021-09-26] MEDS: ASPIRIN COATED 81 MG TABLET.EC PO SCH (11:45)
[2021-09-26] MEDS: THIAMINE HCL 100 MG TABLET (FP) PO SCH (11:45)
== END 2021-09-26 12:08 | disposition left against medical advice (07) | DRG 201 ==
LOC: JER 15:59 → JERBED 21:58 → J4W 09-21 09:34
PROVIDERS: ATTEND Nurse Practitioner Family
DX: I44.1 Atrioventricular block, second degree (principal); G92.9 Unspecified toxic encephalopathy; I16.1 Hypertensive emergency; F11.20 Opioid dependence, uncomplicated; F14.20 Cocaine dependence, uncomplicated; F12.20 Cannabis dependence, uncomplicated; F17.210 Nicotine dependence, cigarettes, uncomplicated; R00.1 Bradycardia, unspecified; R77.8 Other specified abnormalities of plasma proteins; R74.01 Elevation of levels of liver transaminase levels
CPT/HCPCS: 36415; 36600; 70450-TC; 71045-TC-FY; 80053; 80307; 81003; 82550; 82553; 82728; 82784; 82803; 83036; 83540; 83550; 83735; 84439; 84443; 84481; 84484; 85025; 85027; 85610; 85730; 86618; 86705; 86803; 87086; 87340; 87517; 87522; 93005; 93010; 93225; 93226; 93306-TC; 99285-25; C9803; J1644; U0003; U0005

== ENCOUNTER 2022-02-03 14:31 | Inpatient (IN) | payer OTHER ==
[2022-02-03] MEDS ORDERED: chlordiazePOXIDE HCL 25 MG CAPSULE PO PRN (15:18)
[2022-02-03] MEDS ORDERED: DICYCLOMINE HCL 10 MG CAPSULE PO PRN (15:18)
[2022-02-03] MEDS ORDERED: BISMUTH SUBSALICYLATE 262 MG/15 ML BTL PO PRN (15:18)
[2022-02-03] MEDS ORDERED: methaDONE HCL 10 MG TABLET (FOR DETOX USE ONLY) PO ONE (15:18)
[2022-02-03] MEDS ORDERED: LOPERAMIDE HCL 2 MG CAPSULE PO PRN (15:18)
[2022-02-03] MEDS ORDERED: ONDANSETRON *ODT* 4 MG TABLET SL PRN (15:18)
[2022-02-03] MEDS ORDERED: MAGNESIUM HYDROX 2400MG/30ML ORAL SUSPENSION 30 ML CUP PO PRN (15:18)
[2022-02-03] MEDS ORDERED: BENZOCAINE/MENTHOL (CHLORASEPTIC ) LOZENGE MM PRN (15:18)
[2022-02-03] MEDS ORDERED: MAG HYDROX/AL HYDROX/SIMETH 30 ML UNIT-DOSE CUP PO PRN (15:18)
[2022-02-03] MEDS ORDERED: MAGNESIUM CITRATE 300 ML BOTTLE PO PRN (15:18)
[2022-02-03] MEDS ORDERED: ACETAMINOPHEN 325 MG TABLET (FP) PO PRN (15:18)
[2022-02-03] MEDS ORDERED: NICOTINE 10 MG CARTRIDGE (INHALER) IH PRN (15:18)
[2022-02-03] MEDS ORDERED: NALOXONE HCL (KLOXXADO) 8 MG SPRAY NS PRN (15:18)
[2022-02-03 16:03] VITALS: BMI 23.6
[2022-02-03] MEDS: hydrOXYzine PAMOATE 25 MG CAPSULE (FP) PO SCH ×2 (18:07→22:36)
[2022-02-03] MEDS: chlordiazePOXIDE HCL 25 MG CAPSULE PO SCH ×2 (18:13→22:36)
[2022-02-03] MEDS: THIAMINE HCL 100 MG TABLET (FP) PO SCH (22:36)
[2022-02-03] MEDS: MELATONIN 5 MG TABLETS PO SCH (22:36)
[2022-02-04] MEDS: METHOCARBAMOL 500 MG TABLET PO PRN ×2 (07:07→22:52)
[2022-02-04] MEDS: IBUPROFEN 400 MG TABLET (FP) PO PRN ×2 (07:07→22:52)
[2022-02-04] MEDS: hydrOXYzine PAMOATE 25 MG CAPSULE (FP) PO SCH ×5 (07:08→22:53)
[2022-02-04] MEDS: chlordiazePOXIDE HCL 25 MG CAPSULE PO SCH ×4 (07:08→22:53)
[2022-02-04] MEDS ORDERED: methaDONE HCL 10 MG TABLET (FOR DETOX USE ONLY) ONE (10:06)
[2022-02-04] MEDS: PRENATAL VITAMINS W/ FOLIC ACID TABLET (FP) PO SCH (11:10)
[2022-02-04] MEDS: ACETAMINOPHEN 325 MG TABLET (FP) PO PRN (11:12)
[2022-02-04 11:56] LABS: HEMATOCRIT 32.6 % (35.4-49); HEMOGLOBIN 10.3 GM/dL (11.7-16.9); MCH 21.9 pg (25.7-33.7); MCHC 31.7 g/dl (32.0-35.9); MEAN PLT VOLUME 9.8 fl (7.5-11.1); PLATELET COUNT 190 10^3/uL (134-434); RBC 4.73 M/mm3 (4.00-5.60); RDW 16.2 % (11.9-15.9); WHITE BLOOD COUNT 16.8 K/mm3 (4.0-10.0)
[2022-02-04 12:12] LABS: ALBUMIN 2.1 g/dl (3.4-5.0); BLOOD UREA NITROGEN 26.2 mg/dL (7-18); CALCIUM 7.7 mg/dL (8.5-10.1)
[2022-02-04 12:18] LABS: BILIRUBIN,TOTAL 1.1 mg/dL (0.2-1); TOT PROT 6.2 g/dl (6.4-8.2)
[2022-02-04] MEDS: cloNIDine HCL 0.1 MG TABLET PO PRN (22:52)
[2022-02-04] MEDS: THIAMINE HCL 100 MG TABLET (FP) PO SCH (22:53)
[2022-02-04] MEDS: MELATONIN 5 MG TABLETS PO SCH (22:53)
[2022-02-05] MEDS: METHOCARBAMOL 500 MG TABLET PO PRN ×2 (06:19→17:34)
[2022-02-05] MEDS: IBUPROFEN 400 MG TABLET (FP) PO PRN (06:19)
[2022-02-05] MEDS: cloNIDine HCL 0.1 MG TABLET PO PRN (06:19)
[2022-02-05] MEDS: hydrOXYzine PAMOATE 25 MG CAPSULE (FP) PO SCH ×2 (06:20→10:35)
[2022-02-05] MEDS: chlordiazePOXIDE HCL 25 MG CAPSULE PO SCH ×4 (06:20→23:06)
[2022-02-05] MEDS ORDERED: methaDONE HCL 10 MG TABLET (FOR DETOX USE ONLY) PO ONE (10:00)
[2022-02-05] MEDS: PRENATAL VITAMINS W/ FOLIC ACID TABLET (FP) PO SCH (10:35)
[2022-02-05] MEDS ORDERED: hydrOXYzine PAMOATE 25 MG CAPSULE (FP) PO PRN (12:46)
[2022-02-05 14:06] LABS: SARS-CoV-2 NAA Not Detected (Not Detected)
[2022-02-05] MEDS: LIDOCAINE 5% TOPICAL PATCH TP SCH (14:26)
[2022-02-05] MEDS: LIDOCAINE PATCH REMOVAL MC SCH (22:43)
[2022-02-05] MEDS: MELATONIN 5 MG TABLETS PO SCH (23:06)
[2022-02-05] MEDS: THIAMINE HCL 100 MG TABLET (FP) PO SCH (23:06)
[2022-02-06] MEDS ORDERED: chlordiazePOXIDE HCL 10 MG CAPSULE PO PRN
[2022-02-06] MEDS: IBUPROFEN 400 MG TABLET (FP) PO PRN ×2 (03:40→18:19)
[2022-02-06] MEDS: METHOCARBAMOL 500 MG TABLET PO PRN ×3 (03:40→18:19)
[2022-02-06] MEDS: chlordiazePOXIDE HCL 10 MG CAPSULE PO SCH ×4 (05:49→22:32)
[2022-02-06] MEDS ORDERED: methaDONE HCL 10 MG TABLET (FOR DETOX USE ONLY) ONE (09:22)
[2022-02-06 09:50] LABS: BASO % 0.4 % (0-2.0); EOS % 0.4 % (0-4.5); HEMATOCRIT 29.3 % (35.4-49); HEMOGLOBIN 9.7 GM/dL (11.7-16.9); LYMPH % 10.6 % (8-40); MCH 22.5 pg (25.7-33.7); MEAN CELL VOLUME 68.3 fl (80-96); MEAN PLT VOLUME 9.5 fl (7.5-11.1); MONO % 4.5 % (3.8-10.2); NEUT % 84.1 % (42.8-82.8); PLATELET COUNT 299 10^3/uL (134-434); RBC 4.29 M/mm3 (4.00-5.60); RDW 16.5 % (11.9-15.9); WHITE BLOOD COUNT 15.8 K/mm3 (4.0-10.0)
[2022-02-06 09:58] LABS: CALCIUM 8.1 mg/dL (8.5-10.1)
[2022-02-06 09:59] LABS: BLOOD UREA NITROGEN 17.2 mg/dL (7-18)
[2022-02-06 10:02] LABS: CREATININE 0.8 mg/dL (0.55-1.3)
[2022-02-06 10:04] LABS: TOT PROT 6.5 g/dl (6.4-8.2)
[2022-02-06 10:05] LABS: BILIRUBIN,TOTAL 1.1 mg/dL (0.2-1)
[2022-02-06] MEDS: LIDOCAINE 5% TOPICAL PATCH TP SCH (11:11)
[2022-02-06] MEDS: PRENATAL VITAMINS W/ FOLIC ACID TABLET (FP) PO SCH (11:12)
[2022-02-06] MEDS: THIAMINE HCL 100 MG TABLET (FP) PO SCH (22:31)
[2022-02-06] MEDS: MELATONIN 5 MG TABLETS PO SCH (22:31)
[2022-02-06] MEDS: ACETAMINOPHEN 325 MG TABLET (FP) PO PRN (22:32)
[2022-02-06] MEDS: LIDOCAINE PATCH REMOVAL MC SCH (23:04)
[2022-02-07] MEDS ORDERED: chlordiazePOXIDE HCL 10 MG CAPSULE PO SCH (05:00)
[2022-02-07] MEDS: METHOCARBAMOL 500 MG TABLET PO PRN (07:01)
[2022-02-07] MEDS: IBUPROFEN 400 MG TABLET (FP) PO PRN (07:02)
[2022-02-07 08:53] VITALS: BP 120/76; PULSE 84; TEMP 98
[2022-02-07] MEDS ORDERED: methaDONE HCL 10 MG TABLET (FOR DETOX USE ONLY) PO ONE (10:00)
[2022-02-07] MEDS: PRENATAL VITAMINS W/ FOLIC ACID TABLET (FP) PO SCH (10:52)
[2022-02-07] MEDS: LIDOCAINE 5% TOPICAL PATCH TP SCH (10:53)
[2022-02-08] MEDS ORDERED: chlordiazePOXIDE HCL 10 MG CAPSULE PO ONE (05:00)
== END 2022-02-07 11:24 | disposition home or self-care (01) | DRG 773 ==
LOC: YASAS 14:31 → Y3N 16:52
PROVIDERS: ADMIT Allergy & Immunology; ATTEND Allergy & Immunology
PROC: HZ2ZZZZ Detoxification Services for Substance Abuse Treatment (ICD-10-PCS; principal; 2022-02-03)
DX: F11.23 Opioid dependence with withdrawal (principal); F10.230 Alcohol dependence with withdrawal, uncomplicated; F14.20 Cocaine dependence, uncomplicated; F12.20 Cannabis dependence, uncomplicated; F17.213 Nicotine dependence, cigarettes, with withdrawal; D72.829 Elevated white blood cell count, unspecified; R79.89 Other specified abnormal findings of blood chemistry; Z96.653 Presence of artificial knee joint, bilateral; Z86.11 Personal history of tuberculosis; Z86.19 Personal history of other infectious and parasitic diseases
CPT/HCPCS: 36415; 80053; 82962; 85025; 85027; 86593; 86780; C9803-CS; J0735; U0003; U0005

== ENCOUNTER 2023-09-10 09:54 | Inpatient (IN) | payer OTHER ==
[2023-09-10 11:43] VITALS: BMI 24.4
[2023-09-10] MEDS ORDERED: BENZOCAINE/MENTHOL (CHLORASEPTIC ) LOZENGE MM PRN (12:20)
[2023-09-10] MEDS ORDERED: IBUPROFEN 600 MG TABLET (FP) PO PRN (12:20)
[2023-09-10] MEDS ORDERED: hydrOXYzine PAMOATE 25 MG CAPSULE (FP) PO PRN (12:20)
[2023-09-10] MEDS ORDERED: IBUPROFEN 400 MG TABLET (FP) PO PRN (12:20)
[2023-09-10] MEDS ORDERED: NALOXONE HCL (KLOXXADO) 8 MG SPRAY NS PRN (12:20)
[2023-09-10] MEDS ORDERED: guaiFENesin 600 MG TABLET.ER (FP) PO PRN (12:20)
[2023-09-10] MEDS ORDERED: DICYCLOMINE HCL 10 MG CAPSULE PO PRN (12:20)
[2023-09-10] MEDS ORDERED: MAG HYDROX/AL HYDROX/SIMETH 30 ML UNIT-DOSE CUP PO PRN (12:20)
[2023-09-10] MEDS ORDERED: MAGNESIUM HYDROX 2400MG/30ML ORAL SUSPENSION 30 ML CUP PO PRN (12:20)
[2023-09-10] MEDS ORDERED: ACETAMINOPHEN 325 MG TABLET (FP) PO PRN (12:20)
[2023-09-10] MEDS ORDERED: ONDANSETRON *ODT* 4 MG TABLET SL PRN (12:20)
[2023-09-10] MEDS ORDERED: LOPERAMIDE HCL 2 MG CAPSULE PO PRN (12:20)
[2023-09-10] MEDS ORDERED: BISMUTH SUBSALICYLATE 262 MG/15 ML BTL PO PRN (12:20)
[2023-09-10] MEDS ORDERED: POLYETHYLENE GLYCOL (HEALTHYLAX) 3350 17 GM PACKET PO PRN (12:20)
[2023-09-10] MEDS ORDERED: NALOXONE HCL 0.4 MG/ML VIAL IM PRN (12:20)
[2023-09-10] MEDS ORDERED: BENZONATATE 200 MG CAPSULE PO PRN (12:20)
[2023-09-10] MEDS ORDERED: METHOCARBAMOL 500 MG TABLET PO PRN (12:20)
[2023-09-10] MEDS: PRENATAL VITAMINS W/ FOLIC ACID TABLET (FP) PO SCH (13:55)
[2023-09-10] MEDS: NICOTINE 7 MG/24 HOURS TOPICAL PATCH TD SCH (13:55)
[2023-09-10 16:22] LABS: HEMATOCRIT 33.6 % (35.4-49); MCH 23.3 pg (25.7-33.7); MCHC 32.9 g/dl (32.0-35.9); MEAN PLT VOLUME 7.8 fl (7.5-11.1); PLATELET COUNT 272 10^3/uL (134-434); RBC 4.74 M/mm3 (4.00-5.60); RDW 17.2 % (11.9-15.9); WHITE BLOOD COUNT 2.8 K/mm3 (4.0-10.0)
[2023-09-10 16:23] LABS: POTASSIUM 3.8 mmol/L (3.5-5.1)
[2023-09-10 16:27] LABS: ALBUMIN 3.1 g/dl (3.4-5.0)
[2023-09-10 16:28] LABS: BLOOD UREA NITROGEN 21.9 mg/dL (7-18); CALCIUM 8.2 mg/dL (8.5-10.1)
[2023-09-10 16:30] LABS: CREATININE 0.9 mg/dL (0.55-1.3)
[2023-09-10 16:32] LABS: BILIRUBIN,TOTAL 0.6 mg/dL (0.2-1)
[2023-09-10] MEDS ORDERED: methaDONE HCL 10 MG TABLET PO ONE (20:40)
[2023-09-10] MEDS: THIAMINE HCL 100 MG TABLET (FP) PO SCH (21:24)
[2023-09-10] MEDS: MELATONIN 5 MG TABLETS PO SCH (21:24)
[2023-09-11] MEDS ORDERED: methaDONE HCL 10 MG TABLET PO SCH (06:00)
[2023-09-11] MEDS: PRENATAL VITAMINS W/ FOLIC ACID TABLET (FP) PO SCH (10:34)
[2023-09-11] MEDS: ASPIRIN COATED 81 MG TABLET.EC PO SCH (10:34)
[2023-09-11] MEDS: NICOTINE 7 MG/24 HOURS TOPICAL PATCH TD SCH (10:34)
[2023-09-11] MEDS ORDERED: ALBUTEROL SO4 2.5/IPRATROPIUM 0.5 INH SOL 3 ML VIAL.NEB. NEB PRN (14:26)
[2023-09-11] MEDS: THIAMINE HCL 100 MG TABLET (FP) PO SCH (22:56)
[2023-09-11] MEDS: MELATONIN 5 MG TABLETS PO SCH (22:56)
[2023-09-12] MEDS: PRENATAL VITAMINS W/ FOLIC ACID TABLET (FP) PO SCH (10:35)
[2023-09-12] MEDS: NICOTINE 7 MG/24 HOURS TOPICAL PATCH TD SCH (10:35)
[2023-09-12] MEDS: ASPIRIN COATED 81 MG TABLET.EC PO SCH (10:35)
[2023-09-12 13:06] VITALS: RESP 16
[2023-09-12] MEDS: THIAMINE HCL 100 MG TABLET (FP) PO SCH (23:28)
[2023-09-12] MEDS: MELATONIN 5 MG TABLETS PO SCH (23:29)
[2023-09-13] MEDS: ASPIRIN COATED 81 MG TABLET.EC PO SCH (09:16)
[2023-09-13] MEDS: NICOTINE 7 MG/24 HOURS TOPICAL PATCH TD SCH (09:16)
[2023-09-13] MEDS: PRENATAL VITAMINS W/ FOLIC ACID TABLET (FP) PO SCH (09:16)
[2023-09-13 11:42] VITALS: BP 126/70; PULSE 45; TEMP 97.2
== END 2023-09-13 11:07 | disposition home or self-care (01) | DRG 773 ==
LOC: YASAS 09:54 → UNDOADMIN 13:11 → Y3N 13:11
PROVIDERS: ADMIT Allergy & Immunology; ATTEND Surgery
PROC: HZ2ZZZZ Detoxification Services for Substance Abuse Treatment (ICD-10-PCS; principal; 2023-09-10)
DX: F11.20 Opioid dependence, uncomplicated (principal); F10.20 Alcohol dependence, uncomplicated; F17.210 Nicotine dependence, cigarettes, uncomplicated; F14.20 Cocaine dependence, uncomplicated; F12.20 Cannabis dependence, uncomplicated; I10 Essential (primary) hypertension; B18.2 Chronic viral hepatitis C; R76.8 Other specified abnormal immunological findings in serum; Z96.653 Presence of artificial knee joint, bilateral; Z90.81 Acquired absence of spleen
CPT/HCPCS: 36415; 71045-TC-FY; 80053; 80307; 85027; 86593; 86780; 87635; 87811; 93005; 93010